=== PATIENT | female | born 1960 ===

== ENCOUNTER 2017-06-16 06:12 | Inpatient (IN) | payer MEDICARE ==
[2017-06-06 09:39] VITALS: BMI 24.0
--- NOTE | 2017-06-16 07:35 | CP.PCM.HP ---
<Cynthia Patterson - Last Filed: 06/16/17 07:48> History of Present Illness - History of Present Illness History of Present Illness: 56 year old female patient with PMHx of CKD, hyperlipidemia, seizure disorder, arthritis was seen and evaluated at bedside prior to left knee revision surgery. Patient reports that she was here for the same surgery last week but it was canceled due to positive urine culture and she was diagnosed with UTI. Patient reports that she has been taking the antibiotics as prescribed and has been taking cranberry juice everyday since then. Patient denies of having any urinary frequency or urgency. Patient states that she has a history of chronic pain in her left knee for about 4 years now. Patient reports that she tried all the conservative methods for the pain but it was not resolved which led her decision to have the original knee replacement surgery in January 2016. Patient states that since then, her pain has not improved and is still having problem with knee ROM and has been having constant pain. Patient reports that she has been NPO since yesterday. Reports that she has seizure like movements coming out of anesthesia each time after surgery. Patient reports that she is on Keppra but is not compliant with the medication. Patient reports that she took Keppra this morning. Patient denies of having any recent F/N/V/C/SOB/CP/ headache/diarrhea/constipation. Denies of having any other complains at this time. PMHx: CKD, Hyperlipidemia, Seizure disorder, Arthritis PSHx: Left TKR (Jan 2016), Tubal ligation Allergies: N.K.D.A Medications: Keppra, Lipitor, Sodium bicarbonate, multivitamins and iron SHx: Denies of smoking, EtOH use or illicit drug usage FHx: CKD Present on Admission - Present on Admission Any Indicators Present on Admission: Yes Review of Systems - Constitutional Constitutional: As Per HPI - EENT Eyes: As Per HPI Nose/Mouth/Throat: As Per HPI - Breasts Breasts: As Per HPI - Cardiovascular Cardiovascular: As Per HPI - Respiratory Respiratory: As Per HPI - Gastrointestinal Gastrointestinal: As Per HPI - Genitourinary Genitourinary: As Per HPI. absent: Urinary Urgency, Freq UTI - Musculoskeletal Musculoskeletal: As Per HPI - Integumentary Integumentary: As Per HPI - Neurological Neurological: As Per HPI - Psychiatric Psychiatric: As Per HPI - Endocrine Endocrine: As Per HPI - Hematologic/Lymphatic Hematologic: As Per HPI Past Patient History - Past Medical History & Family History Past Medical History?: No - Past Social History Smoking Status: Never Smoked - CARDIAC Hx Cardiac Disorders: Yes Hx Hypercholesterolemia: Yes - PULMONARY Hx Respiratory Disorders: No - NEUROLOGICAL Hx Neurological Disorder: Yes Hx Seizures: Yes - HEENT Hx HEENT Problems: No - RENAL Hx Chronic Kidney Disease: No - ENDOCRINE/METABOLIC Hx Endocrine Disorders: No - HEMATOLOGICAL/ONCOLOGICAL Hx Blood Disorders: No - INTEGUMENTARY Hx Dermatological Problems: No - MUSCULOSKELETAL/RHEUMATOLOGICAL Hx Musculoskeletal Disorders: Yes Hx Arthritis: Yes Hx Back Pain: Yes - GASTROINTESTINAL Hx Gastrointestinal Disorders: No - GENITOURINARY/GYNECOLOGICAL Hx Genitourinary Disorders: No - PSYCHIATRIC Hx Psychophysiologic Disorder: No - SURGICAL HISTORY Hx Surgeries: Yes Hx Orthopedic Surgery: Yes (left total knee) - ANESTHESIA Hx Anesthesia: Yes Hx Anesthesia Reactions: No Hx Malignant Hyperthermia: No Meds Allergies/Adverse Reactions: Allergies Allergy/AdvReac Type Severity Reaction Status Date / Time No Known Allergies Allergy Verified 06/11/17 08:29 Physical Exam - Constitutional Appears: Well, Non-toxic, No Acute Distress - Head Exam Head Exam: ATRAUMATIC - Eye Exam Eye Exam: Normal appearance - ENT Exam ENT Exam: Normal Exam - Neck Exam Neck exam: Positive for: Full Rom, Normal Inspection - Respiratory Exam Respiratory Exam: Clear to Auscultation Bilateral, NORMAL BREATHING PATTERN. absent: Rales, Rhonchi, Wheezes - Cardiovascular Exam Cardiovascular Exam: REGULAR RHYTHM, +S1, +S2. absent: Bradycardia, Tachycardia - GI/Abdominal Exam GI & Abdominal Exam: Normal Bowel Sounds, Soft. absent: Firm, Rigid - Rectal Exam Rectal Exam: Deferred - Extremities Exam Extremities exam: Positive for: joint swelling, normal capillary refill, tenderness, pedal pulses present. Negative for: calf tenderness, full ROM, pedal edema - Back Exam Back exam: FULL ROM, NORMAL INSPECTION - Neurological Exam Neurological exam: Alert, Oriented x3 - Psychiatric Exam Psychiatric exam: Normal Affect, Normal Mood - Skin Skin Exam: Intact, Normal Color, Warm Additional comments: Surgical scar present from previous surgery on the left knee Results - Labs Labs: Reviewed Labs Assessment & Plan - Assessment and Plan (Free Text) Assessment: 56 year old female patient with PMHx of CKD, hyperlipidemia, seizure disorder, arthritis was evaluated prior to revision left knee surgery. Plan: 1). Knee revisional surgery, Arthritis - Patient to OR today for surgery 2). UTI - Negative UA - Received ceftriaxone on her last visit in [facility] - Taking PO ceftin 3). CKD - Elevated creatinine: 2.69 - Elevated BUN: 35 - Sodium Bicarbonate 4). Seizure disorder - Patient is non-compliant with her home medication - Continue Keppra 5). Hyperlipidemia - Continue home med - Lipitor - Date & Time Date: 06/16/17 Time: 07:45 <Ayana Pinzon - Last Filed: 06/16/17 08:09> Results - Labs Labs: Laboratory Results - last 24 hr 06/16/17 07:27 Urine Color Yellow Urine Clarity Cloudy Urine pH 7.0 Ur Specific [place] 1.009 Urine Protein 30 Urine Glucose (UA) Neg Urine Ketones Negative Urine Blood Negative Urine Nitrate Negative Urine Bilirubin Negative Urine Urobilinogen 0.2-1.0 Ur Leukocyte Esterase Large Urine RBC (Auto) 3 Urine Microscopic WBC 149 H Ur Squamous Epith Cells 5 Urine Bacteria Occ H Urine Yeast (Budding) Rare H Decision To Admit - Pt Status Changed To: Hospital Disposition Of: Inpatient - Admit Certification Admit to Inpatient:: After my assessment, the patient will require hospitalization for at least two midnights. This is because of the severity of symptoms shown, intensity of services needed, and/or the medical risk in this patient being treated as an outpatient. - . Bed Request Type: Med/Surg Admitting Physician: Ayana Pinzon Attending/Attestation - Attestation I have personally seen and examined this patient.: Yes I have fully participated in the care of the patient.: Yes I have reviewed all pertinent clinical information: Yes Notes (Text): UTI treated with IV Ceftriaxone and PO Ceftin as rec by Dr Pate Urine c/s : No growth however rpt UA show pyuria. Pt present asymptomatic - denies dysuria, no frequency
[2017-06-16 07:49] LABS: SQUAMOUS EPITHIAL 5 /hpf (0-5); URINE BILIRUBIN NEGATIVE (NEGATIVE); URINE BLOOD NEGATIVE (NEGATIVE); URINE CLARITY CLOUDY (Clear); URINE COLOR YELLOW (YELLOW); URINE GLUCOSE (UA) NEG (Normal); URINE LEUKOCYTE ESTERASE LARGE Leu/uL (Negative); URINE NITRATE NEGATIVE (NEGATIVE); URINE PROTEIN 30 mg/dL (NEGATIVE); URINE UROBILINOGEN 0.2-1.0 mg/dL (0.2-1.0)
[2017-06-16 07:54] LABS: URINE BACTERIA OCC (<OCC)
[2017-06-16] MEDS ORDERED: Meropenem 500 MG in Sodium Chloride 0.9% 100 ML IVPB STA (08:18)
[2017-06-16 09:47] LABS: URINE BACTERIA OCC (<OCC); URINE BILIRUBIN NEGATIVE (NEGATIVE); URINE BLOOD NEGATIVE (NEGATIVE); URINE CLARITY SLIGHTY-CLOUDY (Clear); URINE COLOR STRAW (YELLOW); URINE GLUCOSE (UA) NEG (Normal); URINE LEUKOCYTE ESTERASE LARGE Leu/uL (Negative); URINE NITRATE NEGATIVE (NEGATIVE); URINE PROTEIN NEGATIVE (NEGATIVE); URINE UROBILINOGEN 0.2-1.0 mg/dL (0.2-1.0)
--- NOTE | 2017-06-16 14:30 | CP.PCM.PN ---
Subjective - Date & Time of Evaluation Date of Evaluation: 06/16/17 Time of Evaluation: 14:22 - Subjective Subjective: I D INITIAL CONSULT NOTE DISCUSSED c WILL SEE TOMORROW PATIENT c STERILE PYURIA JIMENA ROACH REVIEWED c PATIENT'S APPLICATION SUPPORT TECHNICIAN THAT PATIENT HAS MEDULLARY SPONGE KIDNEY AND THUS HAS PERSISTENT BACTERIA IN URINE LAST WEEK'S CULTURE WAS NEGATIVE FOR COVERAGE HAVE ORDERED MEROPENEM 500MG [id number] Objective - Vital Signs/Intake and Output Vital Signs (last 24 hours): Temp Pulse Resp BP Pulse Ox 97.9 F 57 L 18 122/70 100 06/16/17 08:20 06/16/17 08:38 06/16/17 08:20 06/16/17 08:20 06/16/17 08:20 - Medications Medications: Current Medications Meropenem 500 mg/ Sodium (Chloride) 100 mls @ 100 mls/hr IVPB Q12 [facility] PRN Reason: Protocol
[2017-06-16] MEDS: Lactobacillus Acidophilus 500 MU Cap PO SCH (17:23)
[2017-06-16 19:00] LABS: BASO % 0.2 % (0.0-2.0); EOS # 0.2 K/uL (0.0-0.7); EOS % 1.9 % (0.0-4.0); HEMOGLOBIN 10.7 g/dL (12.0-16.0); LYMPH # 1.8 K/uL (1.0-4.3); LYMPH % 17.3 % (20.0-40.0); MEAN CELL VOLUME 80.5 fl (81.0-99.0); MEAN CORPUSCULAR HGB CONC 34.8 g/dL (33.0-37.0); MEAN PLATELET VOLUME 8.6 fl (7.2-11.7); MONO # 0.6 K/uL (0.0-0.8); NEUT # 7.6 K/uL (1.8-7.0); NEUT % 74.6 % (50.0-75.0); NRBC % 0.1 % (0.0-0.0); RBC 3.82 Mil/uL (3.80-5.20); RED CELL DISTRIBUTION WIDTH 17.7 % (11.5-14.5); WHITE BLOOD COUNT 10.2 K/uL (4.8-10.8)
[2017-06-16 19:09] LABS: ALB/GLOB RATIO 1.4 (1.0-2.1); ALBUMIN 4.4 g/dL (3.5-5.0); CALCIUM 9.2 mg/dL (8.4-10.2)
[2017-06-16 19:16] LABS: INR 1.1 (0.9-1.2); PARTIAL THROMBOPLASTIN TIME 38.6 Seconds (25.6-37.1); PROTHROMBIN TIME 11.9 Seconds (9.8-13.1)
[2017-06-16] MEDS: Meropenem 500 MG in Sodium Chloride 0.9% 100 ML IVPB SCH (20:40)
--- NOTE | 2017-06-17 08:11 | CP.PCM.PN ---
<LeonardoDustinvinay - Last Filed: 06/17/17 11:13> Subjective - Date & Time of Evaluation Date of Evaluation: 06/17/17 Time of Evaluation: 08:08 - Subjective Subjective: 56 year old female patient with PMHx of CKD, hyperlipidemia, seizure disorder, arthritis was seen and evaluated at bedside for UTI. Patient had a scheduled surgery yesterday which was canceled due to patient's reoccurring UTI. Patient is AAOx3 and is in NAD. Patient denies of having any acute overnight events. Patient admits to having increased urinary frequency with mild burning. Patient denies of any other complains at this time. Objective - Vital Signs/Intake and Output Vital Signs (last 24 hours): Temp Pulse Resp BP Pulse Ox 97.8 F 57 L 18 102/61 98 06/16/17 23:47 06/16/17 23:47 06/16/17 23:47 06/16/17 23:47 06/16/17 23:47 - Medications Medications: Current Medications Atorvastatin Calcium (Lipitor) 10 mg PO DAILY [facility] Cholecalciferol (Vitamin D) 1,000 intlu PO DAILY [facility] Enoxaparin Sodium (Lovenox) 30 mg SC DAILY [facility] PRN Reason: Protocol Meropenem 500 mg/ Sodium (Chloride) 100 mls @ 100 mls/hr IVPB Q12 [facility] PRN Reason: Protocol Last Admin: 06/16/17 20:40 Dose: 100 mls/hr Lactobacillus Acidophilus (Bacid Acidophilus) 1 cap PO BID [facility] Last Admin: 06/16/17 17:23 Dose: 1 cap Levetiracetam (Keppra) 500 mg PO BID [facility] Last Admin: 06/16/17 17:23 Dose: 500 mg Sodium Bicarbonate (Sodium Bicarbonate Tab) 650 mg PO BID [facility] Last Admin: 06/16/17 17:24 Dose: 650 mg - Labs Labs: 06/16/17 18:49 06/16/17 18:49 PT 11.9 Seconds (9.8-13.1) 06/16/17 18:49 INR 1.1 (0.9-1.2) 06/16/17 18:49 APTT 38.6 Seconds (25.6-37.1) H 06/16/17 18:49 - Constitutional Appears: Well, Non-toxic, No Acute Distress - Head Exam Head Exam: ATRAUMATIC - Eye Exam Eye Exam: Normal appearance - ENT Exam ENT Exam: Normal Exam - Neck Exam Neck Exam: Full ROM, Normal Inspection - Respiratory Exam Respiratory Exam: Clear to Ausculation Bilateral, NORMAL BREATHING PATTERN. absent: Rales, Rhonchi, Wheezes - Cardiovascular Exam Cardiovascular Exam: REGULAR RHYTHM, +S1, +S2 - GI/Abdominal Exam GI & Abdominal Exam: Soft, Normal Bowel Sounds - Rectal Exam Rectal Exam: Deferred - Extremities Exam Extremities Exam: Joint Swelling, Normal Capillary Refill, Tenderness - Back Exam Back Exam: Full ROM, NORMAL INSPECTION - Neurological Exam Neurological Exam: Alert, Awake, Oriented x3 - Psychiatric Exam Psychiatric exam: Normal Affect, Normal Mood - Skin Skin Exam: Intact, Normal Color, Warm Assessment and Plan - Assessment and Plan (Free Text) Assessment: 56 year old female patient with PMHx of CKD, hyperlipidemia, seizure disorder, arthritis who is scheduled to go for revision TKR was evaluated for UTI Plan: 1). UTI - Infectious Disease consult - Recommendations appreciated - Meropenem IV q24 - afebrile - no leukocytosis 2). Arthritis - Planned Knee revision surgery - Orthopedic consult - Dr. Seth - Surgery pending - awaiting clean urine culture 3). CKD - Sodium Bicarbonate - Monitor labs 4). Seizure disorder - Patient is non-compliant with her home medication - Continue Keppra 5). Hyperlipidemia - Continue home med - Lipitor 6). DVT PPx - Lovenox 30 mg qd - Ambulating <Arlyn Zambrano - Last Filed: 06/17/17 15:30> Objective - Vital Signs/Intake and Output Vital Signs (last 24 hours): Temp Pulse Resp BP Pulse Ox 97.6 F 58 L 20 112/71 100 06/17/17 08:13 06/17/17 08:13 06/17/17 08:13 06/17/17 08:13 06/17/17 08:13 - Medications Medications: Current Medications Atorvastatin Calcium (Lipitor) 10 mg PO DAILY [facility] Last Admin: 06/17/17 09:02 Dose: 10 mg Cholecalciferol (Vitamin D) 1,000 intlu PO DAILY [facility] Last Admin: 06/17/17 12:39 Dose: 1,000 intlu Enoxaparin Sodium (Lovenox) 30 mg SC DAILY [facility] PRN Reason: Protocol Last Admin: 06/17/17 09:01 Dose: 30 mg Meropenem 500 mg/ Sodium (Chloride) 100 mls @ 100 mls/hr IVPB Q12 [facility] PRN Reason: Protocol Last Admin: 06/17/17 09:49 Dose: 100 mls/hr Lactobacillus Acidophilus (Bacid Acidophilus) 1 cap PO BID [facility] Last Admin: 06/17/17 09:01 Dose: 1 cap Levetiracetam (Keppra) 500 mg PO BID [facility] Last Admin: 06/17/17 09:02 Dose: 500 mg Sodium Bicarbonate (Sodium Bicarbonate Tab) 650 mg PO BID [facility] Last Admin: 06/17/17 09:02 Dose: 650 mg - Labs Labs: 06/16/17 18:49 06/16/17 18:49 PT 11.9 Seconds (9.8-13.1) 06/16/17 18:49 INR 1.1 (0.9-1.2) 06/16/17 18:49 APTT 38.6 Seconds (25.6-37.1) H 06/16/17 18:49 Attending/Attestation - Attestation I have personally seen and examined this patient.: Yes I have fully participated in the care of the patient.: Yes I have reviewed all pertinent clinical information, including history, physical exam and plan: Yes Notes (Text): 06/17/17 15:[address] [facility] [place] [facility] resident dr. cari more. agree with findings and plan as above to note: Merrem q12 not q24
[2017-06-17] MEDS: Lactobacillus Acidophilus 500 MU Cap PO SCH ×2 (09:01→17:20)
[2017-06-17] MEDS: Enoxaparin 30 mg Syringe SC SCH (09:01)
[2017-06-17] MEDS: Meropenem 500 MG in Sodium Chloride 0.9% 100 ML IVPB SCH ×2 (09:49→20:36)
--- NOTE | 2017-06-17 11:32 | PQF GENQUE ---
Dr. Zambrano, Please clarify the stage of the chronic kidney disease: if known Stage 1 Stage 2 (mild) Stage 3 (moderate) Stage 4 (severe) Stage 5 Other (please specify) Clinically unable to determine Unknown H and P: dx. include: CKD - Elevated creatinine: 2.69 - Elevated BUN: 35 - Sodium Bicarbonate Clarification of your documentation is requested to better reflect the severity of illness and intensity of treatment of your patient. Indicators present [] Specify: [] [] Specify: [] [] Specify: [] [] Specify: [] Location in the medical record that reflects the above clinical findings: [] Treatment Provided: [] PHYSICIAN'S RESPONSE STAGE 4 Based on your medical judgment of the clinical indicators outlined above please clarify the following: [] Practitioner response [] If unable to determine, please check the box, sign and date. Present On Admission (POA) Indicator: [X] Present at the time of admission [] Not present at the time of admission [] Clinically Undetermined In responding to this query, please exercise your independent professional judgment. The fact that a question is asked does not imply that any particular answer is desired or expected. Thank you for your clarification on this documentation. If you have any questions please call. * Thank you, Christa Ritchie RN ext. #[phone] MTDD
[2017-06-17] MEDS: Cholecalciferol 1,000 INTLU TAB PO SCH (12:39)
[2017-06-18 06:38] LABS: CALCIUM 9.2 mg/dL (8.4-10.2)
[2017-06-18] MEDS: Cholecalciferol 1,000 INTLU TAB PO SCH (08:38)
[2017-06-18] MEDS: Lactobacillus Acidophilus 500 MU Cap PO SCH ×2 (08:38→17:00)
[2017-06-18] MEDS: Meropenem 500 MG in Sodium Chloride 0.9% 100 ML IVPB SCH ×2 (08:39→20:40)
[2017-06-18] MEDS: Enoxaparin 30 mg Syringe SC SCH (08:42)
--- NOTE | 2017-06-18 11:59 | CP.PCM.PN ---
Subjective - Date & Time of Evaluation Date of Evaluation: 06/18/17 Time of Evaluation: 11:59 - Subjective Subjective: pt doing well no complaints no cp sob calf tenderness no acute events overnight HD stable, tolerating abx well Objective - Vital Signs/Intake and Output Vital Signs (last 24 hours): Temp Pulse Resp BP Pulse Ox 97.7 F 78 20 108/68 99 06/18/17 07:57 06/18/17 07:57 06/18/17 07:57 06/18/17 07:57 06/18/17 07:57 Vitals Reviewed GEN: WDWN, ALERT, COOPERATIVE HEENT: NCAT, PERRL, EOMI HEART: RRR, +S1S2, NO MRG LUNG: CTAB, NO WRR ABD: SOFT, NT, ND, NO HSM, NO MASSES EXT: NORMAL PEDAL PULSES, GOOD CAPILLARY REFILL NEURO: AAOX3, STRENGTH EQUAL BILATERAL UPPER AND LOWER EXTREMITIES SKIN: WARM, DRY PSYCH: NORMAL MOOD, NORMAL AFFECT - Medications Medications: Current Medications Atorvastatin Calcium (Lipitor) 10 mg PO DAILY [facility] Last Admin: 06/18/17 08:38 Dose: 10 mg Cholecalciferol (Vitamin D) 1,000 intlu PO DAILY [facility] Last Admin: 06/18/17 08:38 Dose: 1,000 intlu Enoxaparin Sodium (Lovenox) 30 mg SC DAILY [facility] PRN Reason: Protocol Last Admin: 06/18/17 08:42 Dose: 30 mg Meropenem 500 mg/ Sodium (Chloride) 100 mls @ 100 mls/hr IVPB Q12 [facility] PRN Reason: Protocol Last Admin: 06/18/17 08:39 Dose: 100 mls/hr Lactobacillus Acidophilus (Bacid Acidophilus) 1 cap PO BID [facility] Last Admin: 06/18/17 08:38 Dose: 1 cap Levetiracetam (Keppra) 500 mg PO BID [facility] Last Admin: 06/18/17 08:39 Dose: 500 mg Sodium Bicarbonate (Sodium Bicarbonate Tab) 650 mg PO BID [facility] Last Admin: 06/18/17 08:39 Dose: 650 mg - Labs Labs: 06/16/17 18:49 06/18/17 05:30 PT 11.9 Seconds (9.8-13.1) 06/16/17 18:49 INR 1.1 (0.9-1.2) 06/16/17 18:49 APTT 38.6 Seconds (25.6-37.1) H 06/16/17 18:49 Assessment and Plan - Assessment and Plan (Free Text) Plan: 56 year old female patient with PMHx of CKD, hyperlipidemia, seizure disorder, arthritis who is scheduled to go for revision TKR was evaluated for UTI 1). UTI - Infectious Disease consult - Recommendations appreciated - Meropenem IV q12 - afebrile - no leukocytosis 2). Arthritis - Planned Knee revision surgery - Orthopedic consult - Dr. Seth - Surgery pending - awaiting clean urine culture 3). CKD - Sodium Bicarbonate - Monitor labs 4). Seizure disorder - Patient is non-compliant with her home medication - Continue Keppra 5). Hyperlipidemia - Continue home med - Lipitor 6). DVT PPx - Lovenox 30 mg qd - Ambulating
--- NOTE | 2017-06-18 18:43 | CP.PCM.PN ---
Subjective - Date & Time of Evaluation Date of Evaluation: 06/18/17 Time of Evaluation: 18:25 - Subjective Subjective: I D NOTE PATIENT HAS BEEN EVALUATED MULTIPLE OCCASIONS WILL RECEIVE 1 WEEK MEROPENEM Objective - Vital Signs/Intake and Output Vital Signs (last 24 hours): Temp Pulse Resp BP Pulse Ox 98.2 F 63 18 113/70 99 06/18/17 16:26 06/18/17 16:26 06/18/17 16:26 06/18/17 16:26 06/18/17 16:26 - Medications Medications: Current Medications Atorvastatin Calcium (Lipitor) 10 mg PO DAILY [facility] Last Admin: 06/18/17 08:38 Dose: 10 mg Cholecalciferol (Vitamin D) 1,000 intlu PO DAILY [facility] Last Admin: 06/18/17 08:38 Dose: 1,000 intlu Enoxaparin Sodium (Lovenox) 30 mg SC DAILY [facility] PRN Reason: Protocol Last Admin: 06/18/17 08:42 Dose: 30 mg Meropenem 500 mg/ Sodium (Chloride) 100 mls @ 100 mls/hr IVPB Q12 [facility] PRN Reason: Protocol Last Admin: 06/18/17 08:39 Dose: 100 mls/hr Lactobacillus Acidophilus (Bacid Acidophilus) 1 cap PO BID [facility] Last Admin: 06/18/17 17:00 Dose: 1 cap Levetiracetam (Keppra) 500 mg PO BID [facility] Last Admin: 06/18/17 17:00 Dose: 500 mg Sodium Bicarbonate (Sodium Bicarbonate Tab) 650 mg PO BID [facility] Last Admin: 06/18/17 17:00 Dose: 650 mg - Labs Labs: 06/16/17 18:49 06/18/17 05:30 PT 11.9 Seconds (9.8-13.1) 06/16/17 18:49 INR 1.1 (0.9-1.2) 06/16/17 18:49 APTT 38.6 Seconds (25.6-37.1) H 06/16/17 18:49
[2017-06-19 07:51] VITALS: RESP 18
[2017-06-19] MEDS: Lactobacillus Acidophilus 500 MU Cap PO SCH ×2 (08:40→16:18)
[2017-06-19] MEDS: Enoxaparin 30 mg Syringe SC SCH (08:41)
[2017-06-19] MEDS: Meropenem 500 MG in Sodium Chloride 0.9% 100 ML IVPB SCH ×2 (08:41→20:34)
[2017-06-19] MEDS: Cholecalciferol 1,000 INTLU TAB PO SCH (08:42)
--- NOTE | 2017-06-19 10:41 | CP.PCM.DIS ---
[facility] Last Filed: 06/19/17 12:45> Provider - Provider Date of Admission: 06/16/17 15:33 Attending physician: Ayana Pinzon MD Primary care physician: Cynthia Perez MD Time Spent in preparation of Discharge (in minutes): 20 Diagnosis - Discharge Diagnosis (1) UTI (urinary tract infection) Status: Acute Hospital Course - Lab Results Lab Results: Micro Results 06/16/17 18:49 Blood Blood Culture - Preliminary NO GROWTH AFTER 48 HOURS 06/16/17 18:49 Blood Blood Culture - Preliminary NO GROWTH AFTER 48 HOURS 06/16/17 07:31 Urine,Clean Catch Urine Culture - Final No Growth (<1,000 CFU/ML) Most Recent Lab Values WBC 10.2 K/uL (4.8-10.8) 06/16/17 18:49 RBC 3.82 Mil/uL (3.80-5.20) 06/16/17 18:49 Hgb 10.7 g/dL (12.0-16.0) L 06/16/17 18:49 Hct 30.8 % (34.0-47.0) L 06/16/17 18:49 MCV 80.5 fl (81.0-99.0) L 06/16/17 18:49 MCH 28.0 pg (27.0-31.0) 06/16/17 18:49 MCHC 34.8 g/dL (33.0-37.0) 06/16/17 18:49 RDW 17.7 % (11.5-14.5) H 06/16/17 18:49 Plt Count 224 K/uL (130-400) 06/16/17 18:49 MPV 8.6 fl (7.2-11.7) 06/16/17 18:49 Neut % (Auto) 74.6 % (50.0-75.0) 06/16/17 18:49 Lymph % (Auto) 17.3 % (20.0-40.0) L 06/16/17 18:49 [place] % (Auto) 6.0 % (0.0-10.0) 06/16/17 18:49 Eos % (Auto) 1.9 % (0.0-4.0) 06/16/17 18:49 Baso % (Auto) 0.2 % (0.0-2.0) 06/16/17 18:49 Neut # 7.6 K/uL (1.8-7.0) H 06/16/17 18:49 Lymph # 1.8 K/uL (1.0-4.3) 06/16/17 18:49 [place] # 0.6 K/uL (0.0-0.8) 06/16/17 18:49 Eos # 0.2 K/uL (0.0-0.7) 06/16/17 18:49 Baso # 0.0 K/uL (0.0-0.2) 06/16/17 18:49 PT 11.9 Seconds (9.8-13.1) 06/16/17 18:49 INR 1.1 (0.9-1.2) 06/16/17 18:49 APTT 38.6 Seconds (25.6-37.1) H 06/16/17 18:49 Sodium 144 mmol/l (132-148) 06/18/17 05:30 Potassium 4.0 MMOL/L (3.6-5.0) 06/18/17 05:30 Chloride 111 mmol/L (98-107) H 06/18/17 05:30 Carbon Dioxide 18 mmol/L (22-30) L 06/18/17 05:30 Anion Gap 19 (10-20) 06/18/17 05:30 BUN 39 mg/dl (7-17) H 06/18/17 05:30 Creatinine 2.8 mg/dl (0.7-1.2) H 06/18/17 05:30 Est GFR ( Amer) 21 06/18/17 05:30 Est GFR (Non-Af Amer) 17 06/18/17 05:30 Random Glucose 154 mg/dL (65-105) H 06/18/17 05:30 Calcium 9.2 mg/dL (8.4-10.2) 06/18/17 05:30 Total Bilirubin 0.5 mg/dl (0.2-1.3) 06/16/17 18:49 AST 16 U/L (14-36) 06/16/17 18:49 ALT 29 U/L (9-52) 06/16/17 18:49 Alkaline Phosphatase 74 U/L (38-126) 06/16/17 18:49 Total Protein 7.7 G/DL (6.3-8.2) 06/16/17 18:49 Albumin 4.4 g/dL (3.5-5.0) 06/16/17 18:49 Globulin 3.2 gm/dL (2.2-3.9) 06/16/17 18:49 Albumin/Globulin Ratio 1.4 (1.0-2.1) 06/16/17 18:49 Urine Color Straw (YELLOW) 06/16/17 09:16 Urine Clarity Slighty-cloudy (Clear) 06/16/17 09:16 Urine pH 7.0 (5.0-8.0) 06/16/17 09:16 Ur Specific Howe 1.009 (1.003-1.030) 06/16/17 09:16 Urine Protein Negative mg/dL (NEGATIVE) 06/16/17 09:16 Urine Glucose (UA) Neg mg/dL (Normal) 06/16/17 09:16 Urine Ketones Negative mg/dL (NEGATIVE) 06/16/17 09:16 Urine Blood Negative (NEGATIVE) 06/16/17 09:16 Urine Nitrate Negative (NEGATIVE) 06/16/17 09:16 Urine Bilirubin Negative (NEGATIVE) 06/16/17 09:16 Urine Urobilinogen 0.2-1.0 mg/dL (0.2-1.0) 06/16/17 09:16 Ur Leukocyte Esterase Large Daniela/uL (Negative) 06/16/17 09:16 Urine RBC (Auto) 1 /hpf (0-3) 06/16/17 09:16 Urine Microscopic WBC 72 /hpf (0-5) H 06/16/17 09:16 Ur Squamous Epith Cells 5 /hpf (0-5) 06/16/17 07:27 Urine Bacteria Occ (<OCC) H 06/16/17 09:16 Urine Yeast (Budding) Rare /hpf (NEGATIVE) H 06/16/17 09:16 Blood Type O POSITIVE 06/16/17 07:50 Antibody Screen Negative 06/16/17 07:50 BBK History Checked Patient has bt 06/16/17 07:50 - Hospital Course Hospital Course: 56 year old female patient with PMHx of CKD, hyperlipidemia, seizure disorder, arthritis was admitted to the hospital due to recurrent UTI prior to revision left knee surgery. During the hospital stay, patient was seen by infectious disease. Patient is receiving IV Meropenem and will be on abx for total of 7 days. Patient is scheduled to have the left knee surgery on Friday. Patient will be transferred to TCU to complete the course of IV abx prior to the left knee surgery. 1). UTI - Infectious Disease consult - Recommendations appreciated - Meropenem IV q12 - afebrile - no leukocytosis 2). Arthritis - Planned Knee revision surgery - Orthopedic consult - Dr. Seth - Surgery pending - awaiting clean urine culture 3). CKD - Sodium Bicarbonate - Monitor labs 4). Seizure disorder - Patient is non-compliant with her home medication - Continue Keppra 5). Hyperlipidemia - Continue home med - Lipitor 6). DVT PPx - Lovenox 30 mg qd - Ambulating - Date & Time of H&P Date of H&P: 06/19/17 Time of H&P: 08:50 Discharge Exam - Head Exam Head Exam: ATRAUMATIC - Eye Exam Eye Exam: Normal appearance - ENT Exam ENT Exam: Normal Exam - Neck Exam Neck exam: Full Rom, Normal Inspection - Respiratory Exam Respiratory Exam: Clear to PA & Lateral, NORMAL BREATHING PATTERN, UNREMARKABLE. absent: Rales, Rhonchi, Wheezes - Cardiovascular Exam Cardiovascular Exam: REGULAR RHYTHM, +S1, +S2. absent: Bradycardia, Tachycardia - GI/Abdominal Exam GI & Abdominal Exam: Normal Bowel Sounds, Unremarkable - Rectal Exam Rectal Exam: Deferred - Extremities Exam Extremities exam: full ROM, normal capillary refill, normal inspection, pedal pulses present - Back Exam Back exam: FULL ROM, NORMAL INSPECTION - Neurological Exam Neurological exam: Alert, Normal Gait, Oriented x3 - Psychiatric Exam Psychiatric exam: Normal Affect, Normal Mood - Skin Skin Exam: Intact, Normal Color, Warm Discharge Plan - Discharge Medications Prescriptions: Meropenem [Merrem IV] 500 mg IV Q12 5 Days pds - Follow Up Plan Condition: GOOD Disposition: TRANSF TO SNF Instructions: Urinary Tract Infection in Women (DC), Revision Total Joint Arthroplasty (DC) Additional Instructions: d/c to TCU Referrals: Jerzy Seth III, MD [Staff Provider] - Regan Pate MD [Medical Doctor] - Cynthia Perez MD [Primary Care Provider] - <Ayana Pinzon - Last Filed: 06/19/17 16:23> Provider - Provider Date of Admission: 06/16/17 15:33 Attending physician: Ayana Pinzon MD Primary care physician: Cynthia Perez MD Hospital Course - Lab Results Lab Results: Micro Results 06/16/17 18:49 Blood Blood Culture - Preliminary NO GROWTH AFTER 48 HOURS 06/16/17 18:49 Blood Blood Culture - Preliminary NO GROWTH AFTER 48 HOURS 06/16/17 07:31 Urine,Clean Catch Urine Culture - Final No Growth (<1,000 CFU/ML) Most Recent Lab Values WBC 10.2 K/uL (4.8-10.8) 06/16/17 18:49 RBC 3.82 Mil/uL (3.80-5.20) 06/16/17 18:49 Hgb 10.7 g/dL (12.0-16.0) L 06/16/17 18:49 Hct 30.8 % (34.0-47.0) L 06/16/17 18:49 MCV 80.5 fl (81.0-99.0) L 06/16/17 18:49 MCH 28.0 pg (27.0-31.0) 06/16/17 18:49 MCHC 34.8 g/dL (33.0-37.0) 06/16/17 18:49 RDW 17.7 % (11.5-14.5) H 06/16/17 18:49 Plt Count 224 K/uL (130-400) 06/16/17 18:49 MPV 8.6 fl (7.2-11.7) 18 18:49 Neut % (Auto) 74.6 % (50.0-75.0) 06/16/17 18:49 Lymph % (Auto) 17.3 % (20.0-40.0) L 06/16/17 18:49 [place] % (Auto) 6.0 % (0.0-10.0) 06/16/17 18:49 Eos % (Auto) 1.9 % (0.0-4.0) 06/16/17 18:49 Baso % (Auto) 0.2 % (0.0-2.0) 06/16/17 18:49 Neut # 7.6 K/uL (1.8-7.0) H 06/16/17 18:49 Lymph # 1.8 K/uL (1.0-4.3) 06/16/17 18:49 [place] # 0.6 K/uL (0.0-0.8) 06/16/17 18:49 Eos # 0.2 K/uL (0.0-0.7) 06/16/17 18:49 Baso # 0.0 K/uL (0.0-0.2) 06/16/17 18:49 PT 11.9 Seconds (9.8-13.1) 06/16/17 18:49 INR 1.1 (0.9-1.2) 06/16/17 18:49 APTT 38.6 Seconds (25.6-37.1) H 06/16/17 18:49 Sodium 144 mmol/l (132-148) 06/18/17 05:30 Potassium 4.0 MMOL/L (3.6-5.0) 06/18/17 05:30 Chloride 111 mmol/L (98-107) H 06/18/17 05:30 Carbon Dioxide 18 mmol/L (22-30) L 06/18/17 05:30 Anion Gap 19 (10-20) 06/18/17 05:30 BUN 39 mg/dl (7-17) H 06/18/17 05:30 Creatinine 2.8 mg/dl (0.7-1.2) H 06/18/17 05:30 Est GFR ( Amer) 21 06/18/17 05:30 Est GFR (Non-Af Amer) 17 06/18/17 05:30 Random Glucose 154 mg/dL (65-105) H 06/18/17 05:30 Calcium 9.2 mg/dL (8.4-10.2) 06/18/17 05:30 Total Bilirubin 0.5 mg/dl (0.2-1.3) 06/16/17 18:49 AST 16 U/L (14-36) 06/16/17 18:49 ALT 29 U/L (9-52) 06/16/17 18:49 Alkaline Phosphatase 74 U/L (38-126) 06/16/17 18:49 Total Protein 7.7 G/DL (6.3-8.2) 06/16/17 18:49 Albumin 4.4 g/dL (3.5-5.0) 06/16/17 18:49 Globulin 3.2 gm/dL (2.2-3.9) 06/16/17 18:49 Albumin/Globulin Ratio 1.4 (1.0-2.1) 06/16/17 18:49 Urine Color Straw (YELLOW) 06/16/17 09:16 Urine Clarity Slighty-cloudy (Clear) 06/16/17 09:16 Urine pH 7.0 (5.0-8.0) 06/16/17 09:16 Ur Specific Howe 1.009 (1.003-1.030) 06/16/17 09:16 Urine Protein Negative mg/dL (NEGATIVE) 06/16/17 09:16 Urine Glucose (UA) Neg mg/dL (Normal) 06/16/17 09:16 Urine Ketones Negative mg/dL (NEGATIVE) 06/16/17 09:16 Urine Blood Negative (NEGATIVE) 06/16/17 09:16 Urine Nitrate Negative (NEGATIVE) 06/16/17 09:16 Urine Bilirubin Negative (NEGATIVE) 06/16/17 09:16 Urine Urobilinogen 0.2-1.0 mg/dL (0.2-1.0) 06/16/17 09:16 Ur Leukocyte Esterase Large Daniela/uL (Negative) 06/16/17 09:16 Urine RBC (Auto) 1 /hpf (0-3) 06/16/17 09:16 Urine Microscopic WBC 72 /hpf (0-5) H 06/16/17 09:16 Ur Squamous Epith Cells 5 /hpf (0-5) 06/16/17 07:27 Urine Bacteria Occ (<OCC) H 06/16/17 09:16 Urine Yeast (Budding) Rare /hpf (NEGATIVE) H 06/16/17 09:16 Blood Type O POSITIVE 06/16/17 07:50 Antibody Screen Negative 06/16/17 07:50 BBK History Checked Patient has bt 06/16/17 07:50 Attending/Attestation - Attestation I have personally seen and examined this patient.: Yes I have fully participated in the care of the patient.: Yes I have reviewed all pertinent clinical information, including history, physical exam and plan: Yes Notes (Text): 1). UTI - was started on IV Meropenem since admission as rec by ID - will d/c pt to TCU to complete IV antibiotic treatment 2). Arthritis - Planned Knee revision surgery - Orthopedic consult - Dr. Seth - Surgery pending - awaiting UTI to resolve prior to any surgery 3). CKD stage IV, stable - cont Sodium Bicarbonate - Monitor labs - pt to ff up with her Linux System Engineer as outpt 4). Seizure disorder - Continue Keppra - home med 5). Hyperlipidemia - Continue home med - Lipitor 6). DVT PPx - Lovenox 30 mg qd - Ambulating
[2017-06-19 16:27] VITALS: BP 99/63; PULSE 53; TEMP 97.4; O2SAT 98
== END 2017-06-19 22:40 | DRG 690 ==
LOC: H.OPSURG 06:12 → H.MEDSURG1 15:33
PROVIDERS: ADMIT Internal Medicine; ATTEND Internal Medicine
DX: N39.0 Urinary tract infection, site not specified (principal); N18.4 Chronic kidney disease, stage 4 (severe); Q61.5 Medullary cystic kidney; E78.5 Hyperlipidemia, unspecified; G40.909 Epilepsy, unspecified, not intractable, without status epilepticus; Z96.652 Presence of left artificial knee joint; Z91.14 Patient's other noncompliance with medication regimen; M19.90 Unspecified osteoarthritis, unspecified site; E78.00 Pure hypercholesterolemia, unspecified; G89.29 Other chronic pain

== ENCOUNTER 2017-06-19 14:48 | Inpatient (IN) | payer OTHER ==
[2017-06-19 23:01] VITALS: BMI 25.8
[2017-06-20 06:51] LABS: BASO % 0.3 % (0.0-2.0); EOS # 0.2 K/uL (0.0-0.7); EOS % 1.8 % (0.0-4.0); HEMOGLOBIN 12.1 g/dL (12.0-16.0); LYMPH # 3.4 K/uL (1.0-4.3); LYMPH % 25.9 % (20.0-40.0); MEAN CELL VOLUME 79.6 fl (81.0-99.0); MEAN CORPUSCULAR HEMOGLOBIN 28.2 pg (27.0-31.0); MEAN CORPUSCULAR HGB CONC 35.4 g/dL (33.0-37.0); MEAN PLATELET VOLUME 8.4 fl (7.2-11.7); MONO # 0.9 K/uL (0.0-0.8); MONO % 6.5 % (0.0-10.0); NEUT # 8.7 K/uL (1.8-7.0); NEUT % 65.5 % (50.0-75.0); RBC 4.31 Mil/uL (3.80-5.20); WHITE BLOOD COUNT 13.3 K/uL (4.8-10.8)
[2017-06-20 07:06] LABS: CALCIUM 9.6 mg/dL (8.4-10.2)
[2017-06-20 07:17] LABS: PARTIAL THROMBOPLASTIN TIME 43.1 Seconds (25.6-37.1); PROTHROMBIN TIME 11.7 Seconds (9.8-13.1)
[2017-06-20 08:07] VITALS: RESP 20
--- NOTE | 2017-06-20 08:26 | CP.PCM.HP ---
History of Present Illness - History of Present Illness History of Present Illness: Chief complaint : transferred to TCU for completion of IV antibiotics for UTI HPI: 56 year old female patient with PMHx of CKD ( Medullary Sponge Kidney) , hyperlipidemia, seizure disorder, arthritis was admitted to Med Surg for UTI. She was scheduled for Revision TKR and was found to have UTI. Her Ortho surgery was cancelled and will be rescheduled once UTI resolves. Patient had no fever , has sl leukocytosis on CBC . Denies dysuria, no abd pain nor flank pain. Infectious Disease Specialist was consulted and she was started on IV Meropenem. The patient was transferred to TCU for completion of IV antibiotics. Present on Admission - Present on Admission Any Indicators Present on Admission: No Review of Systems - Review of Systems All systems: reviewed and no additional remarkable complaints except - Constitutional Constitutional: absent: Chills, Fever - EENT Eyes: absent: Change in Vision Nose/Mouth/Throat: absent: Nasal Congestion - Cardiovascular Cardiovascular: absent: Chest Pain, Orthopnea, Palpitations - Respiratory Respiratory: absent: Dyspnea, Hemoptysis - Gastrointestinal Gastrointestinal: absent: Abdominal Pain, Nausea, Vomiting - Genitourinary Genitourinary: Pyuria. absent: Difficulty Urinating, Dysuria, Hematuria - Musculoskeletal Musculoskeletal: Abnormal Gait, Arthralgias - Integumentary Integumentary: absent: Rash - Neurological Neurological: absent: Confusion, Focal Weakness - Psychiatric Psychiatric: absent: Hallucinations - Endocrine Endocrine: absent: Polydipsia, Polyphagia, Polyuria - Hematologic/Lymphatic Hematologic: absent: Easy Bleeding, Easy Bruising Past Patient History - Infectious Disease Hx of Infectious Diseases: None - Tetanus Immunizations Tetanus Immunization: Unknown - Past Medical History & Family History Past Medical History?: Yes - Past Social History Smoking Status: Never Smoked Chewing Tobacco Use: No Cigar Use: No Alcohol: None Drugs: Denies Home Situation {Lives}: With Family - CARDIAC Hx Cardiac Disorders: Yes Hx Hypercholesterolemia: Yes - PULMONARY Hx Respiratory Disorders: No - NEUROLOGICAL Hx Neurological Disorder: Yes Hx Seizures: Yes - HEENT Hx HEENT Problems: No - RENAL Hx Chronic Kidney Disease: Yes Other/Comment: 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 - ENDOCRINE/METABOLIC Hx Endocrine Disorders: No - HEMATOLOGICAL/ONCOLOGICAL Hx AIDS: No Hx Human Immunodeficiency Virus (HIV): No - INTEGUMENTARY Hx Dermatological Problems: No - MUSCULOSKELETAL/RHEUMATOLOGICAL Hx Arthritis: Yes Hx Falls: No - GASTROINTESTINAL Hx Gastrointestinal Disorders: No - GENITOURINARY/GYNECOLOGICAL Hx Genitourinary Disorders: No Hx Urinary Tract Infection: Yes (current) - PSYCHIATRIC Hx Substance Use: No - SURGICAL HISTORY Hx Surgeries: Yes Hx Orthopedic Surgery: Yes (left total knee) - ANESTHESIA Hx Anesthesia: Yes Hx Anesthesia Reactions: No Hx Malignant Hyperthermia: No Meds Allergies/Adverse Reactions: Allergies Allergy/AdvReac Type Severity Reaction Status Date / Time No Known Allergies Allergy Verified 06/11/17 08:29 Physical Exam - Constitutional Appears: No Acute Distress - Head Exam Head Exam: NORMAL INSPECTION, NORMOCEPHALIC - Eye Exam Eye Exam: EOMI, Normal appearance, PERRL Pupil Exam: NORMAL ACCOMODATION - ENT Exam ENT Exam: Mucous Membranes Moist, Normal External Ear Exam - Neck Exam Neck exam: Positive for: Full Rom. Negative for: Meningismus - Respiratory Exam Respiratory Exam: absent: Respiratory Distress, NORMAL BREATHING PATTERN - Cardiovascular Exam Cardiovascular Exam: REGULAR RHYTHM, +S1, +S2 - GI/Abdominal Exam GI & Abdominal Exam: Normal Bowel Sounds, Soft. absent: Tenderness - Extremities Exam Extremities exam: Positive for: normal capillary refill. Negative for: calf tenderness, pedal pulses present Additional comments: pain on ROM of left knee - Back Exam Back exam: absent: CVA tenderness (L), CVA tenderness (R) - Neurological Exam Neurological exam: Alert, CN II-XII Intact, Oriented x3, Reflexes Normal - Psychiatric Exam Psychiatric exam: Normal Mood - Skin Skin Exam: Dry, Normal Color, Warm Results - Vital Signs Recent Vital Signs: Last Vital Signs Temp 97.9 F 06/20/17 08:07 Pulse 66 06/20/17 08:07 Resp 20 06/20/17 08:07 BP 111/62 06/20/17 08:07 Pulse Ox 97 06/20/17 08:07 - Labs Result Diagrams: 06/20/17 06:30 06/20/17 06:30 Labs: Laboratory Results - last 24 hr 06/20/17 06/20/17 06/20/17 06:30 06:30 06:30 WBC 13.3 H RBC 4.31 Hgb 12.1 Hct 34.3 MCV 79.6 L MCH 28.2 MCHC 35.4 RDW 18.0 H Plt Count 305 MPV 8.4 Neut % (Auto) 65.5 Lymph % (Auto) 25.9 [place] % (Auto) 6.5 Eos % (Auto) 1.8 Baso % (Auto) 0.3 Neut # 8.7 H Lymph # 3.4 [place] # 0.9 H Eos # 0.2 Baso # 0.0 PT 11.7 INR 1.0 APTT 43.1 H Sodium 145 Potassium 4.0 Chloride 111 H Carbon Dioxide 18 L Anion Gap 20 BUN 38 H Creatinine 2.8 H Est GFR ( Amer) 21 Est GFR (Non-Af Amer) 17 Random Glucose 151 H Calcium 9.6 Assessment & Plan - Assessment and Plan (Free Text) Assessment: 56 year old female patient with PMHx of CKD, hyperlipidemia, seizure disorder, arthritis was admitted to the hospital for UTI. Pt was scheduled for Revision TKR of the left knee when she was found to have UTI. Her Ortho surgery was cancelled and will be rescheduled omce her UTI resolves. Sge was seen infectious disease who rec IV Meropenem and will be on abx for total of 7 days. Patient is scheduled to have the left knee surgery on Friday. Patient was transferred to TCU to complete the course of IV abx prior to the left knee surgery. 1). UTI - Infectious Disease consult - Meropenem IV q12 - afebrile - no leukocytosis -Urine c/s : multiple organisms 2). Arthritis - Planned Knee revision surgery - Orthopedic consult - Dr. Seth -Plan for Surgery Friday - d/c Lovenox prior to surgery - 3). CKD Stage IV - cont Sodium Bicarbonate - Monitor labs - Had seen Dr Yap her Sash Repairer prior admission and was optimized for surgery- I spoke with Dr Yap - she rec to cont TID Sodium biCarb, may increase to QID if CO2 goes down below 18, may give Epogen and Venofer for anemia ( phone number # [phone]) - renal function has been stable for the past 3 years 4). Seizure disorder - Continue Keppra 5). Hyperlipidemia - Continue home med - Lipitor 6). DVT PPx - Lovenox 30 mg qd- d/loco am - Ambulating Decision To Admit - Pt Status Changed To: Hospital Disposition Of: Inpatient - Admit Certification Admit to Inpatient:: After my assessment, the patient will require hospitalization for at least two midnights. This is because of the severity of symptoms shown, intensity of services needed, and/or the medical risk in this patient being treated as an outpatient. - . Bed Request Type: Transitional Care Unit Admitting Physician: Ayana Pinzon
[2017-06-20] MEDS: Lactobacillus Acidophilus 500 MU Cap PO SCH ×2 (08:56→17:12)
[2017-06-20] MEDS: Cholecalciferol 1,000 INTLU TAB PO SCH (08:57)
[2017-06-20] MEDS: Enoxaparin 30 mg Syringe SC SCH (08:59)
[2017-06-20] MEDS ORDERED: Patient's Own Med (Meropenem [Merrem Iv] 500 MG) IV SCH (09:00)
[2017-06-21] MEDS: Cholecalciferol 1,000 INTLU TAB PO SCH (09:05)
[2017-06-21] MEDS: Lactobacillus Acidophilus 500 MU Cap PO SCH ×2 (09:05→17:09)
[2017-06-21] MEDS: Enoxaparin 30 mg Syringe SC SCH (09:05)
[2017-06-22 06:59] LABS: HEMOGLOBIN 10.5 g/dL (12.0-16.0); MEAN CELL VOLUME 79.9 fl (81.0-99.0); MEAN CORPUSCULAR HGB CONC 35.1 g/dL (33.0-37.0); RBC 3.76 Mil/uL (3.80-5.20); WHITE BLOOD COUNT 9.2 K/uL (4.8-10.8)
[2017-06-22 07:08] LABS: INR 1.1 (0.9-1.2); PARTIAL THROMBOPLASTIN TIME 42.2 Seconds (25.6-37.1); PROTHROMBIN TIME 11.8 Seconds (9.8-13.1)
[2017-06-22 07:20] LABS: CALCIUM 9.3 mg/dL (8.4-10.2)
[2017-06-22] MEDS: Cholecalciferol 1,000 INTLU TAB PO SCH (08:39)
[2017-06-22] MEDS: Enoxaparin 30 mg Syringe SC SCH (08:39)
[2017-06-22] MEDS: Lactobacillus Acidophilus 500 MU Cap PO SCH ×2 (08:39→17:06)
--- NOTE | 2017-06-22 11:36 | CP.PCM.PN ---
Subjective - Date & Time of Evaluation Date of Evaluation: 06/22/17 Time of Evaluation: 11:00 - Subjective Subjective: S- PT WITH SEVERE PAIN, RESROICTED rom S/P L TKR PT WITH ARTHROFIBROSIS WELL Objective - Vital Signs/Intake and Output Vital Signs (last 24 hours): Temp Pulse Resp BP Pulse Ox 97.3 F L 60 20 110/57 L 98 06/22/17 09:12 06/22/17 09:12 06/22/17 09:12 06/22/17 09:12 06/22/17 09:12 - Medications Medications: Current Medications Atorvastatin Calcium (Lipitor) 10 mg PO DAILY [facility] Last Admin: 06/22/17 08:39 Dose: 10 mg Cholecalciferol (Vitamin D) 1,000 intlu PO DAILY [facility] Last Admin: 06/22/17 08:39 Dose: 1,000 intlu Meropenem 500 mg/ Sodium (Chloride) 100 mls @ 100 mls/hr IVPB Q12 [facility] Last Admin: 06/22/17 08:39 Dose: 100 mls/hr Lactobacillus Acidophilus (Bacid Acidophilus) 1 cap PO BID [facility] Last Admin: 06/22/17 08:39 Dose: 1 cap Levetiracetam (Keppra) 500 mg PO BID [facility] Last Admin: 06/22/17 08:39 Dose: 500 mg Sodium Bicarbonate (Sodium Bicarbonate Tab) 650 mg PO QID [facility] Last Admin: 06/22/17 09:05 Dose: 650 mg - Labs Labs: 06/22/17 05:25 06/22/17 05:25 PT 11.8 Seconds (9.8-13.1) 06/22/17 05:25 INR 1.1 (0.9-1.2) 06/22/17 05:25 APTT 42.2 Seconds (25.6-37.1) H 06/22/17 05:25 - Additional Findings Additional findings: Objective systemic- wnl Musculoskekltal stance- erect - pelvis level pt with antalgic gait L severe PT UNABLE TO ATTAIN FULL EXTENSIONrom- BY AT LEAST 16 DEGREES rom- -16 DEGREES TO 44 DEGREES Assessment and Plan - Assessment and Plan (Free Text) Assessment: a- NO EVIDENCE FOR rsd arthrofibrosis/painful stiff TKR 'P_ for revision TKR L - pros cons risks and benfits discussed at legnth possibility of mercvhanical failure/infection/ thromboembolic disease, possibility of secondary or tertiary surgery discussed NO PROMISES GUARANTEES
--- NOTE | 2017-06-22 14:19 | RAD ---
PROCEDURE: Left Knee Radiographs. HISTORY: Pain. COMPARISON: None. FINDINGS: BONES: Left total knee arthroplasty. Hardware appears intact without evidence of loosening or infection. No evidence of acute displaced fracture nor dislocation. JOINTS: As above JOINT EFFUSION: Small suprapatellar joint effusion OTHER FINDINGS: None. IMPRESSION: Left total knee arthroplasty without evidence of hardware failure. Small suprapatellar joint effusion.
[2017-06-22 21:59] VITALS: BP 142/73; PULSE 67; TEMP 98.4; O2SAT 97
[2017-06-23 05:20] LABS: HEMOGLOBIN 10.8 g/dL (12.0-16.0); MEAN CELL VOLUME 81.3 fl (81.0-99.0); MEAN CORPUSCULAR HEMOGLOBIN 28.1 pg (27.0-31.0); MEAN CORPUSCULAR HGB CONC 34.6 g/dL (33.0-37.0); RBC 3.83 Mil/uL (3.80-5.20); RED CELL DISTRIBUTION WIDTH 17.7 % (11.5-14.5); WHITE BLOOD COUNT 10.6 K/uL (4.8-10.8)
[2017-06-23 05:27] LABS: CALCIUM 9.1 mg/dL (8.4-10.2)
[2017-06-23 06:38] LABS: INR 1.1 (0.9-1.2); PARTIAL THROMBOPLASTIN TIME 44.2 Seconds (25.6-37.1); PROTHROMBIN TIME 11.8 Seconds (9.8-13.1)
--- NOTE | 2017-06-23 09:57 | CP.PCM.DIS ---
Provider - Provider Date of Admission: 06/19/17 23:01 Attending physician: Luis Alvarez Primary care physician: Cynthia Perez MD Consults: Dr Seth Time Spent in preparation of Discharge (in minutes): 25 Diagnosis - Discharge Diagnosis (1) UTI (urinary tract infection) Status: Acute Comment: completed course of IV Meropenem in TCU (2) Arthritis of left knee Status: Chronic Comment: for revision of left knee surgery (3) CKD (chronic kidney disease) Status: Chronic Comment: stable (4) Seizure Status: Acute Comment: continue [facility] - Lab Results Lab Results: Most Recent Lab Values WBC 10.6 K/uL (4.8-10.8) 06/23/17 05:11 RBC 3.83 Mil/uL (3.80-5.20) 06/23/17 05:11 Hgb 10.8 g/dL (12.0-16.0) L 06/23/17 05:11 Hct 31.1 % (34.0-47.0) L 06/23/17 05:11 MCV 81.3 fl (81.0-99.0) 06/23/17 05:11 MCH 28.1 pg (27.0-31.0) 06/23/17 05:11 MCHC 34.6 g/dL (33.0-37.0) 06/23/17 05:11 RDW 17.7 % (11.5-14.5) H 06/23/17 05:11 Plt Count 211 K/uL (130-400) 06/23/17 05:11 MPV 8.4 fl (7.2-11.7) 06/20/17 06:30 Neut % (Auto) 65.5 % (50.0-75.0) 06/20/17 06:30 Lymph % (Auto) 25.9 % (20.0-40.0) 06/20/17 06:30 [place] % (Auto) 6.5 % (0.0-10.0) 06/20/17 06:30 Eos % (Auto) 1.8 % (0.0-4.0) 06/20/17 06:30 Baso % (Auto) 0.3 % (0.0-2.0) 06/20/17 06:30 Neut # 8.7 K/uL (1.8-7.0) H 06/20/17 06:30 Lymph # 3.4 K/uL (1.0-4.3) 06/20/17 06:30 [place] # 0.9 K/uL (0.0-0.8) H 06/20/17 06:30 Eos # 0.2 K/uL (0.0-0.7) 06/20/17 06:30 Baso # 0.0 K/uL (0.0-0.2) 06/20/17 06:30 PT 11.8 Seconds (9.8-13.1) 06/23/17 05:11 INR 1.1 (0.9-1.2) 06/23/17 05:11 APTT 44.2 Seconds (25.6-37.1) H 06/23/17 05:11 Sodium 145 mmol/l (132-148) 06/23/17 05:11 Potassium 3.7 MMOL/L (3.6-5.0) 06/23/17 05:11 Chloride 114 mmol/L (98-107) H 06/23/17 05:11 Carbon Dioxide 15 mmol/L (22-30) L 06/23/17 05:11 Anion Gap 20 (10-20) 06/23/17 05:11 BUN 42 mg/dl (7-17) H 06/23/17 05:11 Creatinine 2.6 mg/dl (0.7-1.2) H 06/23/17 05:11 Est GFR ( Amer) 23 06/23/17 05:11 Est GFR (Non-Af Amer) 19 06/23/17 05:11 Random Glucose 125 mg/dL (65-105) H 06/23/17 05:11 Calcium 9.1 mg/dL (8.4-10.2) 06/23/17 05:11 Blood Type O POSITIVE 06/21/17 05:25 Antibody Screen Negative 06/21/17 05:25 Crossmatch See Detail 06/21/17 05:25 BBK History Checked Patient has bt 06/21/17 05:25 - Hospital Course Hospital Course: 56 yo female with history of CKD, HLD, Seizure and Arthritis was admitted for revision of left knee surgery but was found to have recurrent UTI. She was put on IV Meropenem for 7 days and surgery was held. She was transferred to TCU for completion of IV antibiotics. She is scheduled for surgery today after completion of her IV antibiotics. Discharge Exam - Head Exam Head Exam: NORMAL INSPECTION, NORMOCEPHALIC - Eye Exam Eye Exam: absent: Scleral icterus - ENT Exam ENT Exam: Mucous Membranes Moist - Respiratory Exam Respiratory Exam: absent: Rhonchi, Wheezes, Respiratory Distress - Cardiovascular Exam Cardiovascular Exam: REGULAR RHYTHM, +S1, +S2 - GI/Abdominal Exam GI & Abdominal Exam: Soft. absent: Tenderness - Rectal Exam Rectal Exam: Deferred - Neurological Exam Neurological exam: Alert, Oriented x3 - Psychiatric Exam Psychiatric exam: Normal Affect - Skin Skin Exam: Dry, Intact Discharge Plan - Follow Up Plan Condition: STABLE Disposition: Trans to Other Acute Care Hosp Referrals: Cynthia Perez MD [Primary Care Provider] -
== END 2017-06-23 06:45 | disposition short-term general hospital (02) | DRG 690 ==
LOC: H.TCU 23:01
PROVIDERS: ADMIT Internal Medicine; ATTEND Internal Medicine
PROC: 3E03329 Introduction of Other Anti-infective into Peripheral Vein, Percutaneous Approach (ICD-10-PCS; principal; 2017-06-19)
PROC: 30233N1 Transfusion of Nonautologous Red Blood Cells into Peripheral Vein, Percutaneous Approach (ICD-10-PCS; 2017-06-23)
DX: N39.0 Urinary tract infection, site not specified (principal); N18.4 Chronic kidney disease, stage 4 (severe); Q61.5 Medullary cystic kidney; Z87.440 Personal history of urinary (tract) infections; E78.00 Pure hypercholesterolemia, unspecified; E78.5 Hyperlipidemia, unspecified; G40.909 Epilepsy, unspecified, not intractable, without status epilepticus; M17.12 Unilateral primary osteoarthritis, left knee

== ENCOUNTER 2017-06-23 06:42 | Inpatient (IN) | payer MEDICARE ==
[2017-06-23 06:54] VITALS: BMI 25.4
[2017-06-23] MEDS ORDERED: Thrombin Topical 5,000 Int Units Spray Kit ONE (07:14)
[2017-06-23] MEDS ORDERED: Absorbable Gelatin Sponge Size 100 ONE (07:14)
[2017-06-23] MEDS ORDERED: Lactated Ringer's 1,000 ML IV ONE ×2 (07:23→10:00)
[2017-06-23] MEDS ORDERED: Bupivacaine 0.5% Inj(30mL) ONE (07:28)
[2017-06-23] MEDS ORDERED: Propofol 10 mg/ml Inj (20 ML) ONE (07:36)
[2017-06-23] MEDS ORDERED: Rocuronium 10 mg/ml (5 ml) ONE ×2 (07:36→09:24)
[2017-06-23] MEDS ORDERED: Succinylcholine 200 mg/10 ml Inj IV ONE (07:36)
[2017-06-23] MEDS ORDERED: Phenylephrine 10 mg/ml Inj ONE (07:42)
[2017-06-23] MEDS ORDERED: Midazolam 2 MG/2 ML VIAL ONE (08:05)
[2017-06-23] MEDS ORDERED: Sodium Bicarbonate 7.5% (0.9 MEQ/ML) 50ML INJ IV ONE (08:20)
[2017-06-23] MEDS ORDERED: Sodium Chloride 0.9% 1,000 ML IV ONE (08:20)
[2017-06-23 08:24] LABS: INR 1.1 (0.9-1.2); PARTIAL THROMBOPLASTIN TIME 46.9 Seconds (25.6-37.1)
[2017-06-23] MEDS ORDERED: Meropenem 500 mg Inj IVPB ONE (08:40)
[2017-06-23] MEDS ORDERED: ePHEDrine 50 mg/ml Inj ONE (08:47)
[2017-06-23 09:20] LABS: FLUID TYPE SYNOVIAL FLUID
[2017-06-23] MEDS ORDERED: Calcium Chloride 1000 mg/10 ml Syringe IV ONE (09:20)
[2017-06-23] MEDS ORDERED: Dexamethasone 4 mg/1 ml ONE (09:26)
[2017-06-23 10:04] LABS: SF GROSS APPEARANCE BLOODY (CLEAR); SYNOVIAL FLUID MONO/MACROPHAGE 9 % (0-0)
[2017-06-23] MEDS ORDERED: Neostigmine Methylsulfate 2 MG/2 ML ML IV ONE (10:10)
[2017-06-23] MEDS ORDERED: Bacitracin Ointment 30 GM TUBE ONE (11:47)
--- NOTE | 2017-06-23 12:21 | PCM.ANESB2 ---
Popliteal Nerve Block - Popliteal Nerve Block Date of Procedure: 06/23/17 Anesthesiologist: Gordon Pre-Procedure Diagnosis: Painful Left TKA Post-Procedure Diagnosis: Same Procedure Performed: Popliteal Nerve Block Left - Procedure Popliteal Nerve Block: This procedure was explained to the patient that it is for post-operative pain management. Consent was obtained after a thorough discussion with the patient regarding the benefits and possible complications of local anesthetic block of the sciatic nerve at the popliteal level. The patient was brought to the operating room and standard monitors are applied. Time-out was held with the circulating nurse to confirm the correct surgery and the appropriate block. Under general anesthesia, patient's operative leg was gently raised and supported and the groove in between the biceps femoris and vastus lateralis muscles was carefully palpated. The skin approximately 8cm above the popliteal crease was then marked. The ultrasound transducer was then applied to the posterior thigh approximately 8cm above the popliteal crease in the transverse plane and the sciatic nerve before its division was visualized lateral to the popliteal artery and in between the bicep femoris and semimembranosus/ semitendinosus muscles. After identification, the lateral portion of the thigh was prepped with Chloraprep. At this point, a # 21 gauge Stimuplex insulated 4 inch needle was inserted into pre-marked area and advanced in a perpendicular direction. The needle was inserted above the ultrasound transducer in-plane towards the sciatic nerve in a [id number] direction. Needle advancement was performed carefully under direct ultrasound visualization. Nerve stimulator was used and dorsiflexion of the ___left__ foot was elicited at a current of __0.4___ MA. After repeated negative aspiration, __2___cc of _0.375____ % ___bupivicaine with 1:200,000 epinephrine was injected and this was flowed with ___13___ cc of _ 0.375 % ____bupivicaine with 1:200,000 epinephrine . Under ultrasound guidance the local anesthetics were observed surrounding sciatic nerve . The needle was removed intact. The patient tolerated the popliteal nerve block well with stable vital signs and was subsequently prepared for the surgery.
--- NOTE | 2017-06-23 12:24 | PCM.ANESB3 ---
Femoral Nerve Block - Femoral Nerve Block Date of Procedure: 06/23/17 Anesthesiologist: Gordon Pre-Procedure Diagnosis: Painful Left TKA Post-Procedure Diagnosis: Same Procedure Performed: Femoral Nerve Block Left - Procedure Femoral Nerve Block: The procedure was explained to the patient that it is for the post-operative pain management. Consent was obtained after a thorough discussion with the patient regarding the benefits and possible complications of local anesthetic block of the femoral nerve at the inguinal crease area. The patient was brought to the operating room and standard monitors were applied. Time-out was held with the circulating nurse to confirm the correct surgery and the appropriate block. Under general anesthesia, patient was placed in supine position with fully extended lower extremities and the __left groin exposed. The femoral artery was then carefully palpated. The ultrasound transducer was then applied to this area in the transverse plane and the femoral nerve was visualized lateral to the femoral artery and underneath the fascia iliaca. After thorough identification, the inguinal crease area was prepped with Chloraprep. At this point, a #22 gauge Stimuplex 2-inch needle was inserted immediately lateral to the femoral artery pulse at the inguinal crease and advanced perpendicularly. The needle was inserted to the ultrasound transducer in-plane towards the femoral nerve in a [id number] direction. Needle advancement was performed carefully under direct ultrasound visualization. Nerve stimulator was used and twitch of the quadriceps muscle was obtained at current of __0.4___ MA. After negative aspiration, __2___cc of __0.375___% ____bupivicaine with 1: 200,000 epinephrine was injected and this was followed with __18 ____ cc of __0.375 % ___bupivicaine with 1:200,000 epinephrine . Under ultrasound guidance the local anesthetics were observed spreading below fascia iliaca and around the femoral nerve. The needle was removed intact. The patient had stable vital signs, and in no apparent distress. The patient tolerated the femoral nerve block well with stable vital signs and was prepared for subsequent surgery.
[2017-06-23] MEDS: HYDROmorphone 0.5 mg/0.5 ml ISec IVP PRN ×2 (12:25→12:55)
[2017-06-23] MEDS ORDERED: Oxycodone/Acetaminophen 5/325 mg Tab PO PRN (13:48)
[2017-06-23] MEDS ORDERED: Sodium Chloride 0.9% 1,000 ML IV SCH (14:00)
--- NOTE | 2017-06-23 14:05 | PCM.SURG1 ---
Surgeon's Initial Post Op Note - Surgeon's Notes Surgeon: Dorinda Splicer Operator: HILDA Dela Cruz/2nd assist Gulshan Servin Type of Anesthesia: General Endo, Spinal Anesthesia Administered By: DR Rhett Mckee Pre-Operative Diagnosis: Failed/Painful L TKR. arthrofibrosis L knee Operative Findings: as above Post-Operative Diagnosis: as above Operation Performed: Revision L TKR. synovecotmy- ant/post. posterior capsule release. lateral patella release. excision skin/subcutaneous tissue/musc;le Specimen/Specimens Removed: skin/failed TKR/subcutaneous tissue/muscle Estimated Blood Loss: EBL {In ML}: 150 Blood Products Given: N/A, PRBC Drains Used: Hemovac Post-Op Condition: Fair Date of Surgery/Procedure: 06/23/17 Time of Surgery/Procedure: 08:55 (time in room 800)
--- NOTE | 2017-06-23 14:36 | CP.PCM.HP ---
History of Present Illness - History of Present Illness History of Present Illness: 56 yo female with history of CKD, HLD, Seizure and Arthritis was admitted for revision of left knee surgery but was found to have recurrent UTI. She was put on IV Meropenem for 7 days and surgery was held. She was transferred to TCU and completed course of IV antibiotics. Had revision of left TKR earlier today and did well. Present on Admission - Present on Admission Any Indicators Present on Admission: No History of DVT/PE: No History of Uncontrolled Diabetes: No Urinary Catheter: No Decubitus Ulcer Present: No Review of Systems - Review of Systems All systems: reviewed and no additional remarkable complaints except (aside from those mentioned above, 12 point system review were negative by me) Past Patient History - Infectious Disease Hx of Infectious Diseases: None - Tetanus Immunizations Tetanus Immunization: Unknown - Past Medical History & Family History Past Medical History?: Yes - Past Social History Smoking Status: Never Smoked Alcohol: None Drugs: Denies Home Situation {Lives}: With Family - CARDIAC Hx Cardiac Disorders: Yes Hx Hypercholesterolemia: Yes - PULMONARY Hx Respiratory Disorders: No - NEUROLOGICAL Hx Seizures: Yes - HEENT Hx HEENT Problems: No - RENAL Hx Chronic Kidney Disease: Yes Other/Comment: 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 - ENDOCRINE/METABOLIC Hx Endocrine Disorders: No - HEMATOLOGICAL/ONCOLOGICAL Hx Blood Disorders: No Hx AIDS: No Hx Human Immunodeficiency Virus (HIV): No - INTEGUMENTARY Hx Dermatological Problems: No - MUSCULOSKELETAL/RHEUMATOLOGICAL Hx Musculoskeletal Disorders: Yes Hx Arthritis: Yes Hx Back Pain: Yes Hx Falls: No - GASTROINTESTINAL Hx Gastrointestinal Disorders: No - GENITOURINARY/GYNECOLOGICAL Hx Genitourinary Disorders: No Hx Urinary Tract Infection: Yes (current) - PSYCHIATRIC Hx Emotional Abuse: No Hx Physical Abuse: No - SURGICAL HISTORY Hx Surgeries: Yes Hx Orthopedic Surgery: Yes (left total knee) - ANESTHESIA Hx Anesthesia: Yes Hx Anesthesia Reactions: No Hx Malignant Hyperthermia: No Meds Allergies/Adverse Reactions: Allergies Allergy/AdvReac Type Severity Reaction Status Date / Time No Known Allergies Allergy Verified 06/11/17 08:29 Physical Exam - Constitutional Appears: No Acute Distress - Head Exam Head Exam: ATRAUMATIC - Eye Exam Eye Exam: absent: Scleral icterus - ENT Exam ENT Exam: Mucous Membranes Moist - Neck Exam Neck exam: Negative for: Meningismus - Respiratory Exam Respiratory Exam: absent: Rhonchi, Wheezes, Respiratory Distress - Cardiovascular Exam Cardiovascular Exam: REGULAR RHYTHM, +S1, +S2 - GI/Abdominal Exam GI & Abdominal Exam: Soft. absent: Tenderness - Rectal Exam Rectal Exam: Deferred - Neurological Exam Neurological exam: Alert, Oriented x3 - Psychiatric Exam Psychiatric exam: Normal Affect - Skin Skin Exam: Dry, Intact Results - Vital Signs Recent Vital Signs: Last Vital Signs Temp 97.4 F L 06/23/17 13:15 Pulse 54 L 06/23/17 13:30 Resp 18 06/23/17 13:30 BP 106/54 L 06/23/17 13:30 Pulse Ox 100 06/23/17 13:30 - Labs Labs: Laboratory Results - last 24 hr 06/23/17 06/23/17 07:50 09:18 PT 12.0 INR 1.1 APTT 46.9 H Fluid Type Synovial fluid Synovial WBC 188.0 H Synovial RBC 83490.0 H Synovial Neutrophils 58.0 H Synovial Lymphocytes 33.0 H Synov Monos/Macrophage 9 H Assessment & Plan - Assessment and Plan (Free Text) Assessment: 56 yo female with history of CKD, HLD, Seizure and Arthritis was admitted for revision of left knee surgery but was found to have recurrent UTI. She was put on IV Meropenem for 7 days and surgery was held. She was transferred to TCU and completed course of IV antibiotics. Had revision of left TKR earlier today and did well. 1. S/P Revision of Left TKR pain management 2. UTI completed 1 week of IV Meropenem asymptomatic 3. CKD Medullary Sponge Kidney 4. Seizure DO on Keppra
--- NOTE | 2017-06-23 14:39 | RAD ---
PROCEDURE: Left Knee Radiographs. HISTORY: Status post left knee total revision of arthroplasty COMPARISON: Comparison is made with 06/22/2017 FINDINGS: BONES: Interval regression of the left knee arthroplasty compared to the previous exam. The hardware are seen at appropriate position. JOINTS: No evidence of significant joint effusion JOINT EFFUSION: No significant joint effusion. Postsurgical changes are noted. OTHER FINDINGS: None. IMPRESSION: Postsurgical changes.
[2017-06-23] MEDS: ceFAZolin 1 GM in Sodium Chloride 0.9% 100 ML IVPB SCH (16:00)
[2017-06-23] MEDS ORDERED: Meropenem 500 MG in Sodium Chloride 0.9% 100 ML IVPB SCH (17:00)
[2017-06-23] MEDS: Lactobacillus Acidophilus 500 MU Cap PO SCH (17:44)
[2017-06-23] MEDS: Lactated Ringer's 1,000 ML IV SCH ×2 (18:20→22:30)
[2017-06-23] MEDS ORDERED: Patient's Own Med (Meropenem [Merrem Iv] 500 MG) IV SCH (21:00)
[2017-06-24] MEDS: ceFAZolin 1 GM in Sodium Chloride 0.9% 100 ML IVPB SCH (00:14)
[2017-06-24 06:46] LABS: HEMOGLOBIN 9.5 g/dL (12.0-16.0); MEAN CELL VOLUME 80.1 fl (81.0-99.0); MEAN CORPUSCULAR HEMOGLOBIN 28.7 pg (27.0-31.0); MEAN CORPUSCULAR HGB CONC 35.9 g/dL (33.0-37.0); RBC 3.29 Mil/uL (3.80-5.20); WHITE BLOOD COUNT 10.4 K/uL (4.8-10.8)
[2017-06-24 07:26] LABS: CALCIUM 8.6 mg/dL (8.4-10.2)
[2017-06-24 08:07] VITALS: BP 106/68; PULSE 76; RESP 20; TEMP 98.6; O2SAT 96
--- NOTE | 2017-06-24 08:43 | CP.PCM.PN ---
Subjective - Date & Time of Evaluation Date of Evaluation: 06/24/17 Time of Evaluation: 08:40 - Subjective Subjective: S- pt comfortable minimal post op discomfort Objective - Vital Signs/Intake and Output Vital Signs (last 24 hours): Temp Pulse Resp BP Pulse Ox 98.6 F 76 20 106/68 96 06/24/17 08:06 06/24/17 08:06 06/24/17 08:06 06/24/17 08:06 06/24/17 08:06 - Medications Medications: Current Medications Aspirin (Ecotrin) 81 mg PO BID [facility] Atorvastatin Calcium (Lipitor) 10 mg PO DAILY [facility] Cholecalciferol (Vitamin D) 1,000 intlu PO DAILY [facility] Docusate Sodium (Colace) 100 mg PO BID [facility] Last Admin: 06/23/17 17:44 Dose: 100 mg Hydromorphone HCl (Dilaudid) 0.5 mg IVP Q4 PRN PRN Reason: Pain, severe (8-10) Last Admin: 06/23/17 21:46 Dose: 0.5 mg Lactated Ringer's (Lactated Ringer's) 1,000 mls @ 100 mls/hr IV .Q10H [facility] Last Admin: 06/23/17 22:30 Dose: Not Given Sodium Chloride (Sodium Chloride 0.9%) 1,000 mls @ 70 mls/hr IV .[id number] [facility] Stop: 06/24/17 18:34 Meropenem 500 mg/ Sodium (Chloride) 100 mls @ 100 mls/hr IVPB Q12@0900,2100 [facility] Lactobacillus Acidophilus (Bacid Acidophilus) 1 cap PO BID [facility] Last Admin: 06/23/17 17:44 Dose: 1 cap Levetiracetam (Keppra) 500 mg PO BID [facility] Last Admin: 06/23/17 21:40 Dose: 500 mg Ondansetron HCl (Zofran Inj) 4 mg IVP Q6 PRN PRN Reason: Nausea/Vomiting Oxycodone/Acetaminophen (Percocet 5/325 Mg Tab) 2 tab PO Q4 PRN PRN Reason: Pain, moderate (4-7) Stop: 06/26/17 13:49 Last Admin: 06/24/17 07:51 Dose: 2 tab Sodium Bicarbonate (Sodium Bicarbonate Tab) 650 mg PO QID [facility] Last Admin: 06/23/17 21:40 Dose: 650 mg - Labs Labs: 06/24/17 06:25 06/24/17 06:25 PT 12.0 Seconds (9.8-13.1) 06/23/17 07:50 INR 1.1 (0.9-1.2) 06/23/17 07:50 APTT 46.9 Seconds (25.6-37.1) H 06/23/17 07:50 - Additional Findings Additional findings: Objective L knee wound dry and intact N/V intact pt comfortabl;e Assessment and Plan - Assessment and Plan (Free Text) Assessment: A- s/p L TKR(complex Revision) P- full weight bearing/ CPM/ active and passive ROM
[2017-06-24] MEDS ORDERED: Cholecalciferol 1,000 INTLU TAB PO SCH (09:00)
[2017-06-24] MEDS ORDERED: Meropenem 500 MG in Sodium Chloride 0.9% 100 ML IVPB SCH (09:00)
[2017-06-24] MEDS: Lactobacillus Acidophilus 500 MU Cap PO SCH (09:39)
[2017-06-24] MEDS: Lactated Ringer's 1,000 ML IV SCH (11:18)
--- NOTE | 2017-06-24 15:04 | PQF GENQUE ---
PATIENT HAS STAGE IV CKD - DR. ESTRELLA Mills, Please clarify the stage of the chronic kidney disease: if known Stage 1 Stage 2 (mild) Stage 3 (moderate) Stage 4 (severe) Stage 5 Other (please specify) Clinically unable to determine Unknown BUN:36 Creatinine:2.4 Est GFR (Af Am/ Non-Af Am); 25/21 H and P: diagnoses include:.CKD Medullary Sponge Kidney This form is a permanent part of the medical record Clarification of your documentation is requested to better reflect the severity of illness and intensity of treatment of your patient. Indicators present [] Specify: [] [] Specify: [] [] Specify: [] [] Specify: [] Location in the medical record that reflects the above clinical findings: [] Treatment Provided: [] PHYSICIAN'S RESPONSE Based on your medical judgment of the clinical indicators outlined above please clarify the following: [] Practitioner response [] If unable to determine, please check the box, sign and date. Present On Admission (POA) Indicator: [] Present at the time of admission [] Not present at the time of admission [] Clinically Undetermined In responding to this query, please exercise your independent professional judgment. The fact that a question is asked does not imply that any particular answer is desired or expected. Thank you for your clarification on this documentation. If you have any questions please call. * Thank you, Christa Ritchie RN ext. #[phone] MTDD
--- NOTE | 2017-06-24 20:51 | CP.PCM.DIS ---
Provider - Provider Date of Admission: 06/23/17 13:48 Attending physician: Edward Ordonez MD Primary care physician: Cynthia Perez MD Consults: Dr. Seth- orthopedics Dr. Pate- [place] Time Spent in preparation of Discharge (in minutes): 25 Hospital Course - Lab Results Lab Results: Micro Results 06/23/17 09:16 Other: Please Indicate Mycobacterial Culture - Preliminary 06/23/17 09:16 Knee Left Fungal Culture - Preliminary 06/23/17 09:16 Knee - Left Gram Stain - Final 06/23/17 09:16 Knee - Left Wound Culture - Preliminary NO GROWTH AFTER 24 HOURS 06/23/17 09:16 Knee - Left Gram Stain - Final 06/23/17 09:16 Knee - Left Wound Culture - Preliminary NO GROWTH AFTER 24 HOURS 06/23/17 09:16 Knee - Left Gram Stain - Final 06/23/17 09:16 Knee - Left Wound Culture - Preliminary NO GROWTH AFTER 24 HOURS 06/23/17 09:16 Knee - Left Gram Stain - Final 06/23/17 09:16 Knee - Left Wound Culture - Preliminary NO GROWTH AFTER 24 HOURS 06/23/17 09:16 Knee - Left Gram Stain - Final 06/23/17 09:16 Knee - Left Wound Culture - Preliminary NO GROWTH AFTER 24 HOURS 06/23/17 09:16 Knee - Left Gram Stain - Final 06/23/17 09:16 Knee - Left Wound Culture - Preliminary NO GROWTH AFTER 24 HOURS 06/23/17 09:16 Knee - Left Gram Stain - Final 06/23/17 09:16 Knee - Left Wound Culture - Preliminary NO GROWTH AFTER 24 HOURS 06/23/17 09:16 Body Fluid - Knee-Left Gram Stain - Final 06/23/17 09:16 Body Fluid - Knee-Left Body Fluid Culture - Preliminary NO GROWTH AFTER 24 HOURS 06/23/17 09:16 Knee - Left Gram Stain - Final 06/23/17 09:16 Knee - Left Wound Culture - Preliminary NO GROWTH AFTER 24 HOURS Most Recent Lab Values WBC 10.4 K/uL (4.8-10.8) 06/24/17 06:25 RBC 3.29 Mil/uL (3.80-5.20) L 06/24/17 06:25 Hgb 9.5 g/dL (12.0-16.0) L 06/24/17 06:25 Hct 26.3 % (34.0-47.0) L 06/24/17 06:25 MCV 80.1 fl (81.0-99.0) L 06/24/17 06:25 MCH 28.7 pg (27.0-31.0) 06/24/17 06:25 MCHC 35.9 g/dL (33.0-37.0) 06/24/17 06:25 RDW 17.0 % (11.5-14.5) H 06/24/17 06:25 Plt Count 148 K/uL (130-400) 06/24/17 06:25 PT 12.0 Seconds (9.8-13.1) 06/23/17 07:50 INR 1.1 (0.9-1.2) 06/23/17 07:50 APTT 46.9 Seconds (25.6-37.1) H 06/23/17 07:50 Sodium 145 mmol/l (132-148) 06/24/17 06:25 Potassium 3.7 MMOL/L (3.6-5.0) 06/24/17 06:25 Chloride 113 mmol/L (98-107) H 06/24/17 06:25 Carbon Dioxide 19 mmol/L (22-30) L 06/24/17 06:25 Anion Gap 17 (10-20) 06/24/17 06:25 BUN 36 mg/dl (7-17) H 06/24/17 06:25 Creatinine 2.4 mg/dl (0.7-1.2) H 06/24/17 06:25 Est GFR ( Amer) 06/24/17 06:25 Est GFR (Non-Af Amer) 06/24/17 06:25 Random Glucose 169 mg/dL (65-105) H 06/24/17 06:25 Calcium 8.6 mg/dL (8.4-10.2) 06/24/17 06:25 Fluid Type Synovial fluid 06/23/17 09:18 Synovial WBC 188.0 /mm3 (0.0-150.0) H 06/23/17 09:18 Synovial RBC 28375.0 /mm3 (0.0-0.0) H 06/23/17 09:18 Synovial Neutrophils 58.0 % (0-0) H 06/23/17 09:18 Synovial Lymphocytes 33.0 % (0-0) H 06/23/17 09:18 Synov Monos/Macrophage 9 % (0-0) H 06/23/17 09:18 - Hospital Course Hospital Course: 56 yo female with a past medical history of CKD, HLD, seizures, arthritis, who was admitted to the hospital for revision of left knee surgery but was found to have recurrent UTI. She was placed on Merepenem for 7 days and surgery was held. She was transferred to TCU and completed course of antibiotics. Had revision of left TKR on 06/23/2017 and was admitted to med/surg afterwards. Today she was discharged back to TCU in stable condition. Assessment: 56 yo female with history of CKD, HLD, Seizure and Arthritis was admitted for revision of left knee surgery but was found to have recurrent UTI. She was put on IV Meropenem for 7 days and surgery was held. She was transferred to TCU and completed course of IV antibiotics. Had revision of left TKR earlier today and did well. 1. S/P Revision of Left TKR, POD #1 Discharge to TCU pain management with percocet Dr. Seth consultation 2. UTI- resolved completed 1 week of IV Meropenem asymptomatic 3. 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 Seizure DO on Keppra 5. Constipation Continue Colace 6. Hypercholesterolemia - 10 mg po daily DVT prophylaxis - Conservative management with Aspirin 81 mg po BID Discharge Exam - Additional Findings Additional findings: Physical exam: Constitutional- cooperative, awake, alert Head- NCAT, PERRL Eye- PERRL, EOMI ENT- normal exam, MMM. Neck- normal inspection, supple, no JVD Respiratory- CTAB, no wheezes rales rhonchi Cardiovascular- RRR, +S1, +S2 no MRG GI/Abdominal- normal bowel sounds, soft, no mass, no hsm Skin- warm, dry Extremities Exam- normal capillary refill, normal inspection Neurological Exam- alert, awake, oriented Psych- normal mood, normal affect Discharge Plan - Follow Up Plan Condition: GOOD Disposition: TRANSF TO SNF Instructions: Revision Total Joint Arthroplasty (DC), Hemovac Drain Care (DC) Referrals: Cynthia Perez MD [Primary Care Provider] -
--- NOTE | 2017-06-25 21:01 | OP ---
PROCEDURE DATE: 06/23/2017 LOCATION: [facility]. PREOPERATIVE DIAGNOSES: 1. Failed painful left total knee replacement. 2. Arthrofibrosis of the left knee. POSTOPERATIVE DIAGNOSES: 1. Failed painful left total knee replacement. 2. Arthrofibrosis of the left knee. OPERATIVE FINDINGS: As above, severe posterior capsular contracture, synovitis, failed painful left total knee replacement, with severe arthrofibrosis of the left knee. PROCEDURES: 1. Revision left total knee replacement. 2. Synovectomy anterior and posterior 3. Posterior capsular release. 4. Lateral patellar retinacular release. 5. Excision of skin, subcutaneous tissue and muscle. SPECIMENS REMOVED: 1. Failed total knee replacement. 2. Scar. 3. Subcutaneous tissue and muscle and skin. ESTIMATED BLOOD LOSS: 150 mL. BLOOD PRODUCTS GIVEN: 1 unit packed red blood cells. DRAINS: One Hemovac drain. POSTOPERATIVE CONDITION: Fair. TIME OF SURGERY: 8:55; time in the room 8:00. OPERATIVE INDICATION: Lizy oYon is a 56-year-old woman, who had undergone total knee replacement arthroplasty approximately 2 years ago. The patient had a painful result and the patient underwent a manipulation and extensive therapy without improvement. The patient can no longer withstand the discomfort. The patient presented to my office. There was a question of overstuffing of the joint with thickness of the polyethylene. The patient had an established 35-degree contracture to extension, inability to obtain full extension and flexion only 30 degrees more. Pros, cons, risks and benefits of the surgical approach were discussed at length. The patient cannot withstand the discomfort, possibility of mechanical failure, infection, thromboembolic disease, secondary or tertiary surgery was discussed. The patient demanded the knee replacement arthroplasty, situation was discussed with the patient and her 2 daughters. OPERATIVE PROCEDURE: After having obtained informed consent in the above fashion, after the satisfactory induction of spinal and general and regional anesthesia, after having identified the side, site and procedure, and a critical pause/time-out, the patient identified as Lizy Yoon in the supine position with all bony prominences well padded, the right lower extremity was prepped, free draped in usual fashion for lower extremity surgery. The tourniquet had been applied but was not yet inflated. After sterilely prepping and draping, after exsanguinating the limb using a 6-inch Esmarch bandage, the tourniquet which had been applied was inflated to 350 mmHg. An incision was described 3 fingerbreadths proximal and 2 fingerbreadths distal. Skin incision was carried down through the skin and subcutaneous tissue and muscle. Medial arthrotomy was accomplished. Great care was taken not to avulse the patellar ligament. Careful dissection was carried out. A lateral patellar retinacular release was accomplished to mobilize the patella. Dissection was carried around posteromedially to the direct head of the semimembranosus tendon. A portion of the patellar ligament is elevated. There is an iliotibial band contracture and a posterior capsular contracture, and a lateral patellar retinacular contracture. The lateral patellar retinaculum is released. There is an excessive amount of scar tissue around the patella. This patellar meniscus and scar tissue was excised. The patella was everted. The knee is flexed. The tibia was dislocated anteriorly and the initial work on the revision will be accomplished on the tibial side. Great care was taken to stabilize the patellar ligament insertion. The interface between the tibial plate and the cement is developed using an oscillating saw initially. This was followed using Accu-Drive and osteotomes. This was a very tedious portion of the procedure and took approximately 15 minutes. Great care was taken to work medially, laterally, anteriorly. The Accu-Drive was used on the actual anterior aspect of the tibial plate. The tibial polyethylene was removed. Posteriorly, the interface was still developed as well. At this point in time, the tibial component was loosened and removed with a minimal amount of bone loss. At this point time, there was an excessive amount of posterior capsular contracture. The posterior capsule was released, and the posterior capsule was elevated from the posterior aspect of the femur. Great care was taken to avoid injury to the popliteal artery. This having been accomplished, attention was now turned to the femur. The interface between the cement and prosthesis is developed using oscillating saw and the Accu-Drive. The femur was carefully removed again with minimal bone loss. It was marked on the anterior aspect of the femur with the marking guide for the joint line position. This having been accomplished, the excess cement was debrided from the tibia and the femur. Attention was turned to the tibia. At this point in time, computer navigation was accomplished using [place] anterior strut was affixed to the tibia and the initial osteotomy was accomplished. After registration of the medial and lateral malleoli and the offset, varus-valgus was set as there is posterior slope to 0 degrees. The tibial osteotomy was accomplished. All excess cement was removed. At this point in time, sizing was for #2 femoral component, reaming was carried out for a 80-mm extension. This having been accomplished, rotational alignment was defined by the lateral aspect of tibial condyle, mid malleolar axis, medial third of the tibial tuberosity. The alignment jig for the OrthAlign is removed. Attention was turned to the femur. The femoral canal was introduced and the distal femoral cut was set to 2 degrees of valgus. This having been accomplished, the #2 femoral component was employed. The #2 block was applied along the epicondylar axis. Anterior and posterior osteotomies were accomplished. Chamfer cut was accomplished as well, as well as the box cut, the intercondylar box cut. Again, extensive anterior and posterior synovectomy was accomplished. The posterior capsule was released. Lateral patellar retinaculum was released. At this point in time, attention was turned to the patella. Extensive synovectomy was accomplished anteriorly and posteriorly as well as in the area of patella. The patella button was removed using the oscillating saw. Using a high-speed drill, the pegs were removed. Patellar osteotomy was accomplished. Reaming was accomplished to a #35 mm patella. Trialing was accomplished with the stem femoral component. The femoral canal had been reamed. The stemmed #2 femoral component is employed, the #2 tibial tray and a 22 mm polyethylene. Posterior capsule was released and full extension was achieved. This was approximately 125 degrees of flexion. The patella was reamed and aligned, and patellar balance was found to be acceptable. Flexion extension balance was found to be acceptable. Wound was thoroughly irrigated. Lateral patellar retinacular release was completed. The femur, tibia and patella were prepared. The #2 cemented femoral component is employed, the #2 cemented tibial tray, 22 mm polyethylene and the 35 mm patella. The wound was thoroughly irrigated. Balance was excellent. The tourniquet was deflated. Hemostasis controlled with the Aquamantys and the electrocautery. Closure was in layers, #2 fiber wire, followed by Vicryl, and sreedhar for skin over an 8-inch suction Hemovac drain. Harsha Estrada compression dressing and knee immobilizers applied. Postoperative x-rays showed excellent position of the construct. Again, it was discussed with the patient and the family, both preoperatively and postoperatively, the importance of her been compliant with flexion extension and physical therapy. CPM was applied. Postoperative block was employed to allow the patient began to flex the knee. Jerzy Seth MD
== END 2017-06-24 13:45 | DRG 467 ==
LOC: H.OPSURG 06:42 → H.MEDSURG1 13:48
PROVIDERS: ADMIT Hospitalist; ATTEND Hospitalist
PROC: 3E0T3BZ Introduction of Anesthetic Agent into Peripheral Nerves and Plexi, Percutaneous Approach (ICD-10-PCS; 2017-06-23)
PROC: 0HBLXZZ Excision of Left Lower Leg Skin, External Approach (ICD-10-PCS; 2017-06-23)
PROC: 30233N1 Transfusion of Nonautologous Red Blood Cells into Peripheral Vein, Percutaneous Approach (ICD-10-PCS; 2017-06-23)
PROC: 0SRD0J9 Replacement of Left Knee Joint with Synthetic Substitute, Cemented, Open Approach (ICD-10-PCS; principal; 2017-06-23 07:45)
PROC: 0SPD0JZ Removal of Synthetic Substitute from Left Knee Joint, Open Approach (ICD-10-PCS; 2017-06-23 07:45)
PROC: 0SBD0ZZ Excision of Left Knee Joint, Open Approach (ICD-10-PCS; 2017-06-23 07:45)
DX: T84.84XA Pain due to internal orthopedic prosthetic devices, implants and grafts, initial encounter (principal); N18.4 Chronic kidney disease, stage 4 (severe); R56.9 Unspecified convulsions; Q61.5 Medullary cystic kidney; E78.00 Pure hypercholesterolemia, unspecified; E78.5 Hyperlipidemia, unspecified; K59.00 Constipation, unspecified; Y83.1 Surgical operation with implant of artificial internal device as the cause of abnormal reaction of the patient, or of later complication, without mention of misadventure at the time of the procedure; Z79.82 Long term (current) use of aspirin; Z87.440 Personal history of urinary (tract) infections; Z96.652 Presence of left artificial knee joint; M19.90 Unspecified osteoarthritis, unspecified site; M54.9 Dorsalgia, unspecified; M65.9 Synovitis and tenosynovitis, unspecified; M24.662 Ankylosis, left knee

== ENCOUNTER 2017-06-24 11:42 | Inpatient (IN) | payer MEDICARE, OTHER ==
[2017-06-24 14:10] VITALS: BMI 26.5
[2017-06-24 14:12] VITALS: RESP 20
[2017-06-24] MEDS: Lactobacillus Acidophilus 500 MU Cap PO SCH (17:32)
[2017-06-24] MEDS: Oxycodone/Acetaminophen 5/325 mg Tab PO PRN (17:32)
[2017-06-24] MEDS ORDERED: Patient's Own Med (Meropenem [Merrem Iv] 500 MG) IV SCH (21:00)
[2017-06-25] MEDS: Oxycodone/Acetaminophen 5/325 mg Tab PO PRN ×3 (00:09→08:46)
[2017-06-25] MEDS: Lactobacillus Acidophilus 500 MU Cap PO SCH ×2 (08:45→17:41)
[2017-06-25] MEDS: Cholecalciferol 1,000 INTLU TAB PO SCH (08:46)
--- NOTE | 2017-06-25 09:47 | CP.PCM.HP ---
History of Present Illness - History of Present Illness History of Present Illness: Chief Complaint : transferred to TCU for PT post Revision TKR HPI: 56 year old female patient with PMHx of CKD ( Medullary Sponge Kidney) , hyperlipidemia, seizure disorder, arthritis was admitted to [facility] Surg for Revision TKR of the Left Knee. Prior to the Surgery , she completed 1 wk of IV Meropenem for treatment of UTI. Patient undewrent Revision of Left TKR. No post op complications. Patient is doing well. Pain is controlled . She was transferred to TCU to continue PT/OT. Present on Admission - Present on Admission Any Indicators Present on Admission: No Review of Systems - Review of Systems All systems: reviewed and no additional remarkable complaints except Review of Systems: - Review of Systems All systems: reviewed and no additional remarkable complaints except - Constitutional Constitutional: absent: Chills, Fever - EENT Eyes: absent: Change in Vision Nose/Mouth/Throat: absent: Nasal Congestion - Cardiovascular Cardiovascular: absent: Chest Pain, Orthopnea, Palpitations - Respiratory Respiratory: absent: Dyspnea, Hemoptysis - Gastrointestinal Gastrointestinal: absent: Abdominal Pain, Nausea, Vomiting - Genitourinary Genitourinary: Pyuria. absent: Difficulty Urinating, Dysuria, Hematuria - Musculoskeletal Musculoskeletal: Abnormal Gait, Arthralgias - Integumentary Integumentary: absent: Rash - Neurological Neurological: absent: Confusion, Focal Weakness - Psychiatric Psychiatric: absent: Hallucinations - Endocrine Endocrine: absent: Polydipsia, Polyphagia, Polyuria - Hematologic/Lymphatic Hematologic: absent: Easy Bleeding, Easy Bruising Past Patient History - Infectious Disease Hx of Infectious Diseases: None - Tetanus Immunizations Tetanus Immunization: Unknown - Past Medical History & Family History Past Medical History?: Yes - Past Social History Smoking Status: Never Smoked - CARDIAC Hx Hypercholesterolemia: Yes - PULMONARY Hx Respiratory Disorders: No - NEUROLOGICAL Hx Seizures: Yes - HEENT Hx HEENT Problems: No - RENAL Hx Chronic Kidney Disease: Yes Other/Comment: 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 - ENDOCRINE/METABOLIC Hx Endocrine Disorders: No - HEMATOLOGICAL/ONCOLOGICAL Hx Blood Disorders: No Hx AIDS: No Hx Human Immunodeficiency Virus (HIV): No - INTEGUMENTARY Hx Dermatological Problems: No - MUSCULOSKELETAL/RHEUMATOLOGICAL Hx Arthritis: Yes Hx Falls: No - GASTROINTESTINAL Hx Gastrointestinal Disorders: No - GENITOURINARY/GYNECOLOGICAL Hx Genitourinary Disorders: No Hx Urinary Tract Infection: Yes (current) - PSYCHIATRIC Hx Emotional Abuse: No Hx Physical Abuse: No Hx Substance Use: No - SURGICAL HISTORY Hx Surgeries: Yes Hx Orthopedic Surgery: Yes (left total knee, revision of LTKR 06/22) - ANESTHESIA Hx Anesthesia: Yes Hx Anesthesia Reactions: No Hx Malignant Hyperthermia: No Meds Allergies/Adverse Reactions: Allergies Allergy/AdvReac Type Severity Reaction Status Date / Time No Known Allergies Allergy Verified 06/24/17 14:10 Physical Exam - Constitutional Appears: Well, Non-toxic, No Acute Distress - Head Exam Head Exam: ATRAUMATIC, NORMAL INSPECTION, NORMOCEPHALIC - Eye Exam Eye Exam: EOMI, Normal appearance, PERRL Pupil Exam: NORMAL ACCOMODATION - ENT Exam ENT Exam: Mucous Membranes Moist, Normal External Ear Exam - Neck Exam Neck exam: Positive for: Full Rom. Negative for: Meningismus - Respiratory Exam Respiratory Exam: NORMAL BREATHING PATTERN. absent: Rales, Wheezes, Respiratory Distress - Cardiovascular Exam Cardiovascular Exam: REGULAR RHYTHM, +S1, +S2 - GI/Abdominal Exam GI & Abdominal Exam: Normal Bowel Sounds, Soft. absent: Tenderness - Extremities Exam Extremities exam: Positive for: normal capillary refill, pedal pulses present. Negative for: calf tenderness Additional comments: left knee wound - sreedhar intact , looks clean - Back Exam Back exam: FULL ROM. absent: CVA tenderness (L), CVA tenderness (R) - Neurological Exam Neurological exam: Alert, CN II-XII Intact, Oriented x3, Reflexes Normal - Psychiatric Exam Psychiatric exam: Normal Affect, Normal Mood - Skin Skin Exam: Dry, Normal Color, Warm Results - Vital Signs Recent Vital Signs: Last Vital Signs Temp 97.5 F L 06/25/17 08:13 Pulse 90 06/25/17 08:13 Resp 20 06/25/17 08:13 BP 105/56 L 06/25/17 08:13 Pulse Ox 100 06/25/17 08:13 - Labs Result Diagrams: 06/25/17 14:14 06/25/17 14:14 Assessment & Plan - Assessment and Plan (Free Text) Assessment: 56 yo female with history of CKD, HLD, Seizure and Arthritis was admitted for revision of left knee surgery but was found to have recurrent UTI. She was put on IV Meropenem for 7 days and surgery was held. She was transferred to TCU and completed course of IV antibiotics. Patient underwent Revision of left TKR and is doing well post op . She was transferred to TCU for further Rehab. 1. S/P Revision of Left TKR pain management with cici Seth consultation PT/OT 2. 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 Seizure Disorder on Keppra 4. Constipation Continue Colace add Dulcolax 5. Hypercholesterolemia - Lipitor 10 mg po daily DVT prophylaxis -ASA 81 mg bid Decision To Admit - Pt Status Changed To: Hospital Disposition Of: Inpatient - Admit Certification Admit to Inpatient:: After my assessment, the patient will require hospitalization for at least two midnights. This is because of the severity of symptoms shown, intensity of services needed, and/or the medical risk in this patient being treated as an outpatient. - . Bed Request Type: Transitional Care Unit Admitting Physician: Ayana Pinzon
--- NOTE | 2017-06-25 13:08 | CP.PCM.PN ---
Subjective - Date & Time of Evaluation Date of Evaluation: 06/25/17 Time of Evaluation: 11:00 - Subjective Subjective: Patient states pain is well controlled. Denies numbness/tingling/CP/SOB. Tolerating PT well. Objective - Vital Signs/Intake and Output Vital Signs (last 24 hours): Temp Pulse Resp BP Pulse Ox 97.5 F L 101 H 20 105/56 L 100 06/25/17 08:13 06/25/17 11:47 06/25/17 08:13 06/25/17 08:13 06/25/17 08:13 - Medications Medications: Current Medications Aspirin (Ecotrin) 81 mg PO BID [facility] Last Admin: 06/25/17 08:46 Dose: 81 mg Atorvastatin Calcium (Lipitor) 10 mg PO DAILY [facility] Bisacodyl (Dulcolax) 5 mg PO DAILY PRN PRN Reason: Constipation Cholecalciferol (Vitamin D) 1,000 intlu PO DAILY [facility] Last Admin: 06/25/17 08:46 Dose: 1,000 intlu Docusate Sodium (Colace) 100 mg PO BID [facility] Last Admin: 06/25/17 08:45 Dose: 100 mg Lactobacillus Acidophilus (Bacid Acidophilus) 1 cap PO BID [facility] Last Admin: 06/25/17 08:45 Dose: 1 cap Levetiracetam (Keppra) 500 mg PO BID [facility] Last Admin: 06/25/17 08:46 Dose: 500 mg Oxycodone/Acetaminophen (Percocet 5/325 Mg Tab) 1 tab PO Q4 PRN PRN Reason: Pain, moderate (4-7) Stop: 06/27/17 14:41 Last Admin: 06/25/17 08:46 Dose: 1 tab Sodium Bicarbonate (Sodium Bicarbonate Tab) 650 mg PO QID [facility] Last Admin: 06/25/17 08:45 Dose: 650 mg - Extremities Exam Additional comments: Left knee: hemovac pulled, dressing changed. Small amount sang drainage, no erythema> +ROM ankle/toes, sensation intact +DP pulse calves soft NT neg homans Assessment and Plan (1) Status post revision of total knee replacement Assessment & Plan: cont PT/ot VTE proph repeat labs d/w Dr. Seth, agrees with above Status: Acute
--- NOTE | 2017-06-25 13:20 | CP.PCM.CON ---
History of Present Illness - History of Present Illness History of Present Illness: 74 year old female status post total knee replacement Review of Systems - Musculoskeletal Musculoskeletal: Abnormal Gait, Limited Range of Motion, Muscle Weakness Past Patient History - Infectious Disease Hx of Infectious Diseases: None - Tetanus Immunizations Tetanus Immunization: Unknown - Past Medical History & Family History Past Medical History?: Yes - Past Social History Smoking Status: Never Smoked - CARDIAC Hx Hypercholesterolemia: Yes - PULMONARY Hx Respiratory Disorders: No - NEUROLOGICAL Hx Seizures: Yes - HEENT Hx HEENT Problems: No - RENAL Hx Chronic Kidney Disease: Yes Other/Comment: 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 - ENDOCRINE/METABOLIC Hx Endocrine Disorders: No - HEMATOLOGICAL/ONCOLOGICAL Hx Blood Disorders: No Hx AIDS: No Hx Human Immunodeficiency Virus (HIV): No - INTEGUMENTARY Hx Dermatological Problems: No - MUSCULOSKELETAL/RHEUMATOLOGICAL Hx Arthritis: Yes Hx Falls: No - GASTROINTESTINAL Hx Gastrointestinal Disorders: No - GENITOURINARY/GYNECOLOGICAL Hx Genitourinary Disorders: No Hx Urinary Tract Infection: Yes (current) - PSYCHIATRIC Hx Emotional Abuse: No Hx Physical Abuse: No Hx Substance Use: No - SURGICAL HISTORY Hx Surgeries: Yes Hx Orthopedic Surgery: Yes (left total knee, revision of LTKR 06/22) - ANESTHESIA Hx Anesthesia: Yes Hx Anesthesia Reactions: No Hx Malignant Hyperthermia: No Meds Allergies/Adverse Reactions: Allergies Allergy/AdvReac Type Severity Reaction Status Date / Time No Known Allergies Allergy Verified 06/24/17 14:10 - Medications Medications: Current Medications Aspirin (Ecotrin) 81 mg PO BID [facility] Last Admin: 06/25/17 08:46 Dose: 81 mg Atorvastatin Calcium (Lipitor) 10 mg PO DAILY [facility] Last Admin: 06/25/17 13:13 Dose: 10 mg Bisacodyl (Dulcolax) 5 mg PO DAILY PRN PRN Reason: Constipation Cholecalciferol (Vitamin D) 1,000 intlu PO DAILY [facility] Last Admin: 06/25/17 08:46 Dose: 1,000 intlu Docusate Sodium (Colace) 100 mg PO BID [facility] Last Admin: 06/25/17 08:45 Dose: 100 mg Lactobacillus Acidophilus (Bacid Acidophilus) 1 cap PO BID [facility] Last Admin: 06/25/17 08:45 Dose: 1 cap Levetiracetam (Keppra) 500 mg PO BID [facility] Last Admin: 06/25/17 08:46 Dose: 500 mg Oxycodone/Acetaminophen (Percocet 5/325 Mg Tab) 1 tab PO Q4 PRN PRN Reason: Pain, moderate (4-7) Stop: 06/27/17 14:41 Last Admin: 06/25/17 08:46 Dose: 1 tab Sodium Bicarbonate (Sodium Bicarbonate Tab) 650 mg PO QID [facility] Last Admin: 06/25/17 13:13 Dose: 650 mg Physical Exam - Head Exam Head Exam: ATRAUMATIC, NORMAL INSPECTION, NORMOCEPHALIC - Eye Exam Eye Exam: EOMI, Normal appearance, PERRL Pupil Exam: NORMAL ACCOMODATION - ENT Exam ENT Exam: Mucous Membranes Moist, Normal Exam - Neck Exam Neck exam: Positive for: Normal Inspection - Respiratory Exam Respiratory Exam: Clear to Auscultation Bilateral, NORMAL BREATHING PATTERN - Cardiovascular Exam Cardiovascular Exam: REGULAR RHYTHM - GI/Abdominal Exam GI & Abdominal Exam: Normal Bowel Sounds - Rectal Exam Rectal Exam: NORMAL INSPECTION - Exam External exam: NORMAL EXTERNAL EXAM - Extremities Exam Extremities exam: Positive for: normal inspection - Back Exam Back exam: NORMAL INSPECTION - Neurological Exam Neurological exam: Alert, CN II-XII Intact - Psychiatric Exam Psychiatric exam: Normal Affect, Normal Mood - Skin Skin Exam: Dry, Intact Results - Vital Signs Recent Vital Signs: Last Vital Signs Temp 97.5 F L 06/25/17 08:13 Pulse 101 H 06/25/17 11:47 Resp 20 06/25/17 08:13 BP 105/56 L 06/25/17 08:13 Pulse Ox 100 06/25/17 08:13 Assessment & Plan (1) Status post revision of total knee replacement Status: Acute (2) Seizure Status: Acute (3) UTI (urinary tract infection) Status: Acute (4) Arthritis of left knee Assessment and Plan: plan for physical, occupational, therapy range of motion, strenghtening, transfers and gait training Status: Chronic (5) CKD (chronic kidney disease) Status: Chronic
[2017-06-25 14:34] LABS: HEMOGLOBIN 8.9 g/dL (12.0-16.0); MEAN CELL VOLUME 81.1 fl (81.0-99.0); MEAN CORPUSCULAR HEMOGLOBIN 27.5 pg (27.0-31.0); MEAN CORPUSCULAR HGB CONC 33.9 g/dL (33.0-37.0); RBC 3.22 Mil/uL (3.80-5.20); RED CELL DISTRIBUTION WIDTH 17.5 % (11.5-14.5); WHITE BLOOD COUNT 12.4 K/uL (4.8-10.8)
[2017-06-25 14:57] LABS: CALCIUM 8.6 mg/dL (8.4-10.2)
[2017-06-25] MEDS: Bisacodyl 5mg EC Tab PO PRN (21:37)
[2017-06-26] MEDS: Lactobacillus Acidophilus 500 MU Cap PO SCH ×2 (08:40→17:21)
[2017-06-26] MEDS: Cholecalciferol 1,000 INTLU TAB PO SCH (08:43)
[2017-06-26] MEDS: Bisacodyl 5mg EC Tab PO PRN (12:43)
--- NOTE | 2017-06-26 13:04 | CP.PCM.PN ---
Subjective - Date & Time of Evaluation Date of Evaluation: 06/26/17 Time of Evaluation: 08:00 - Subjective Subjective: Patient states she is tolerating PT well. She is comfortable, no new complaints. Objective - Vital Signs/Intake and Output Vital Signs (last 24 hours): Temp Pulse Resp BP Pulse Ox 97.5 F L 96 H 20 110/62 100 06/26/17 09:05 06/26/17 09:05 06/26/17 09:05 06/26/17 09:05 06/26/17 09:05 - Medications Medications: Current Medications Aspirin (Ecotrin) 81 mg PO BID [facility] Last Admin: 06/26/17 08:43 Dose: 81 mg Atorvastatin Calcium (Lipitor) 10 mg PO DAILY [facility] Last Admin: 06/26/17 08:42 Dose: 10 mg Bisacodyl (Dulcolax) 5 mg PO DAILY PRN PRN Reason: Constipation Last Admin: 06/26/17 12:43 Dose: 5 mg Cholecalciferol (Vitamin D) 1,000 intlu PO DAILY [facility] Last Admin: 06/26/17 08:43 Dose: 1,000 intlu Docusate Sodium (Colace) 100 mg PO BID [facility] Last Admin: 06/26/17 08:41 Dose: 100 mg Iron Sucrose 100 mg/ Sodium (Chloride) 105 mls @ 105 mls/hr IVPB DAILY [facility] Stop: 06/27/17 09:59 Last Admin: 06/26/17 11:27 Dose: 105 mls/hr Lactobacillus Acidophilus (Bacid Acidophilus) 1 cap PO BID [facility] Last Admin: 06/26/17 08:40 Dose: 1 cap Levetiracetam (Keppra) 500 mg PO BID [facility] Last Admin: 06/26/17 08:42 Dose: 500 mg Oxycodone/Acetaminophen (Percocet 5/325 Mg Tab) 1 tab PO Q4 PRN PRN Reason: Pain, moderate (4-7) Stop: 06/27/17 14:41 Last Admin: 06/25/17 08:46 Dose: 1 tab Sodium Bicarbonate (Sodium Bicarbonate Tab) 650 mg PO QID [facility] Last Admin: 06/26/17 12:22 Dose: 650 mg - Labs Labs: 06/25/17 14:14 06/25/17 14:14 - Extremities Exam Additional comments: +ROM ankle/toes, sensationintact +DP pulse calves soft NT neg homans incision intact, knee mod swelling no erythema Assessment and Plan (1) Status post revision of total knee replacement Assessment & Plan: POD#3 s/p left revision TKR-PT/OT knee immob vte proph ortho stable d/w Dr. Seth, agrees with above Status: Acute
--- NOTE | 2017-06-26 15:30 | CP.PCM.PN ---
Subjective - Date & Time of Evaluation Date of Evaluation: 06/26/17 Time of Evaluation: 13:30 - Subjective Subjective: Pt seen and examined. Doing well with therapy. Denied any complaint. Objective - Vital Signs/Intake and Output Vital Signs (last 24 hours): Temp Pulse Resp BP Pulse Ox 97.5 F L 96 H 20 110/62 100 06/26/17 09:05 06/26/17 09:05 06/26/17 09:05 06/26/17 09:05 06/26/17 09:05 - Medications Medications: Current Medications Aspirin (Ecotrin) 81 mg PO BID [facility] Last Admin: 06/26/17 08:43 Dose: 81 mg Atorvastatin Calcium (Lipitor) 10 mg PO DAILY [facility] Last Admin: 06/26/17 08:42 Dose: 10 mg Bisacodyl (Dulcolax) 5 mg PO DAILY PRN PRN Reason: Constipation Last Admin: 06/26/17 12:43 Dose: 5 mg Cholecalciferol (Vitamin D) 1,000 intlu PO DAILY [facility] Last Admin: 06/26/17 08:43 Dose: 1,000 intlu Docusate Sodium (Colace) 100 mg PO BID [facility] Last Admin: 06/26/17 08:41 Dose: 100 mg Iron Sucrose 100 mg/ Sodium (Chloride) 105 mls @ 105 mls/hr IVPB DAILY [facility] Stop: 06/27/17 09:59 Last Admin: 06/26/17 11:27 Dose: 105 mls/hr Lactobacillus Acidophilus (Bacid Acidophilus) 1 cap PO BID [facility] Last Admin: 06/26/17 08:40 Dose: 1 cap Levetiracetam (Keppra) 500 mg PO BID [facility] Last Admin: 06/26/17 08:42 Dose: 500 mg Oxycodone/Acetaminophen (Percocet 5/325 Mg Tab) 1 tab PO Q4 PRN PRN Reason: Pain, moderate (4-7) Stop: 06/27/17 14:41 Last Admin: 06/25/17 08:46 Dose: 1 tab Sodium Bicarbonate (Sodium Bicarbonate Tab) 650 mg PO QID [facility] Last Admin: 06/26/17 12:22 Dose: 650 mg - Labs Labs: 06/25/17 14:14 06/25/17 14:14 - Constitutional Appears: No Acute Distress - Head Exam Head Exam: ATRAUMATIC - Eye Exam Eye Exam: absent: Scleral icterus - ENT Exam ENT Exam: Mucous Membranes Moist - Neck Exam Neck Exam: absent: Meningismus - Respiratory Exam Respiratory Exam: absent: Rhonchi, Wheezes, Respiratory Distress - Cardiovascular Exam Cardiovascular Exam: REGULAR RHYTHM, +S1, +S2 - GI/Abdominal Exam GI & Abdominal Exam: Soft. absent: Tenderness - Rectal Exam Rectal Exam: Deferred - Neurological Exam Neurological Exam: Alert, Oriented x3 - Psychiatric Exam Psychiatric exam: Normal Affect - Skin Skin Exam: Dry, Intact Assessment and Plan - Assessment and Plan (Free Text) Assessment: 56 yo female with history of CKD, HLD, Seizure and Arthritis was admitted for revision of left knee surgery but was found to have recurrent UTI. Surgery was held and patient put on IV Meropenem for 7 days. Patient completed course of antibiotics in TCU then had revision of left TKR on 06/23/2017. She returned to TCU for continuation of her therapy. 1. S/P Revision of Left TKR POD # 3 continue PT/OT physiatry consult with Dr Maeve Seth following up case 2. 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 Seizure Disorder on Keppra 4. Hypercholesterolemia continue Lipitor 10 mg po daily 5. DVT prophylaxis ASA 81 mg PO bid
[2017-06-27] MEDS: Oxycodone/Acetaminophen 5/325 mg Tab PO PRN ×4 (06:04→23:52)
[2017-06-27] MEDS: Cholecalciferol 1,000 INTLU TAB PO SCH (08:53)
[2017-06-27] MEDS: Lactobacillus Acidophilus 500 MU Cap PO SCH ×2 (08:56→17:50)
--- NOTE | 2017-06-27 14:38 | CP.PCM.PN ---
Subjective - Date & Time of Evaluation Date of Evaluation: 06/26/17 Time of Evaluation: 14:00 - Subjective Subjective: no acute knee pain Objective - Vital Signs/Intake and Output Vital Signs (last 24 hours): Temp Pulse Resp BP Pulse Ox 97.7 F 75 20 92/50 L 98 06/27/17 09:36 06/27/17 09:36 06/27/17 09:36 06/27/17 09:36 06/27/17 09:36 - Medications Medications: Current Medications Aspirin (Ecotrin) 81 mg PO BID [facility] Last Admin: 06/27/17 08:54 Dose: 81 mg Atorvastatin Calcium (Lipitor) 10 mg PO DAILY [facility] Last Admin: 06/27/17 08:54 Dose: 10 mg Bisacodyl (Dulcolax) 5 mg PO DAILY PRN PRN Reason: Constipation Last Admin: 06/26/17 12:43 Dose: 5 mg Cholecalciferol (Vitamin D) 1,000 intlu PO DAILY [facility] Last Admin: 06/27/17 08:53 Dose: 1,000 intlu Docusate Sodium (Colace) 100 mg PO BID [facility] Last Admin: 06/27/17 08:53 Dose: 100 mg Lactobacillus Acidophilus (Bacid Acidophilus) 1 cap PO BID [facility] Last Admin: 06/27/17 08:56 Dose: 1 cap Levetiracetam (Keppra) 500 mg PO BID [facility] Last Admin: 06/27/17 08:53 Dose: 500 mg Oxycodone/Acetaminophen (Percocet 5/325 Mg Tab) 1 tab PO Q4 PRN PRN Reason: Pain, moderate (4-7) Stop: 06/27/17 14:41 Last Admin: 06/27/17 10:06 Dose: 1 tab Sodium Bicarbonate (Sodium Bicarbonate Tab) 650 mg PO QID [facility] Last Admin: 06/27/17 08:53 Dose: 650 mg - Labs Labs: 06/25/17 14:14 06/25/17 14:14 - Head Exam Head Exam: ATRAUMATIC, NORMAL INSPECTION, NORMOCEPHALIC - Eye Exam Eye Exam: EOMI, Normal appearance Pupil Exam: NORMAL ACCOMODATION - ENT Exam ENT Exam: Mucous Membranes Moist, Normal Exam - Neck Exam Neck Exam: Full ROM, Normal Inspection - Respiratory Exam Respiratory Exam: NORMAL BREATHING PATTERN - Cardiovascular Exam Cardiovascular Exam: REGULAR RHYTHM - GI/Abdominal Exam GI & Abdominal Exam: Soft, Normal Bowel Sounds - Rectal Exam Rectal Exam: NORMAL INSPECTION - Exam External exam: NORMAL EXTERNAL EXAM - Extremities Exam Extremities Exam: Normal Capillary Refill - Back Exam Back Exam: NORMAL INSPECTION - Neurological Exam Neurological Exam: Alert, Awake Neuro motor strength exam: Left Upper Extremity: 4, Right Upper Extremity: 4, Left Lower Extremity: 3, Right Lower Extremity: 4 - Psychiatric Exam Psychiatric exam: Normal Affect, Normal Mood - Skin Skin Exam: Dry, Intact Assessment and Plan (1) Status post revision of total knee replacement Assessment & Plan: plan for quad strenghtening transfers and gait training Status: Acute (2) Seizure Status: Acute (3) UTI (urinary tract infection) Status: Acute (4) Arthritis of left knee Status: Chronic (5) CKD (chronic kidney disease) Status: Chronic
--- NOTE | 2017-06-27 14:40 | CP.PCM.PN ---
Subjective - Date & Time of Evaluation Date of Evaluation: 06/27/17 Time of Evaluation: 13:00 - Subjective Subjective: no acute complaints af any knee pain Objective - Vital Signs/Intake and Output Vital Signs (last 24 hours): Temp Pulse Resp BP Pulse Ox 97.7 F 75 20 92/50 L 98 06/27/17 09:36 06/27/17 09:36 06/27/17 09:36 06/27/17 09:36 06/27/17 09:36 - Medications Medications: Current Medications Aspirin (Ecotrin) 81 mg PO BID [facility] Last Admin: 06/27/17 08:54 Dose: 81 mg Atorvastatin Calcium (Lipitor) 10 mg PO DAILY [facility] Last Admin: 06/27/17 08:54 Dose: 10 mg Bisacodyl (Dulcolax) 5 mg PO DAILY PRN PRN Reason: Constipation Last Admin: 06/26/17 12:43 Dose: 5 mg Cholecalciferol (Vitamin D) 1,000 intlu PO DAILY [facility] Last Admin: 06/27/17 08:53 Dose: 1,000 intlu Docusate Sodium (Colace) 100 mg PO BID [facility] Last Admin: 06/27/17 08:53 Dose: 100 mg Lactobacillus Acidophilus (Bacid Acidophilus) 1 cap PO BID [facility] Last Admin: 06/27/17 08:56 Dose: 1 cap Levetiracetam (Keppra) 500 mg PO BID [facility] Last Admin: 06/27/17 08:53 Dose: 500 mg Oxycodone/Acetaminophen (Percocet 5/325 Mg Tab) 1 tab PO Q4 PRN PRN Reason: Pain, moderate (4-7) Stop: 06/27/17 14:41 Last Admin: 06/27/17 10:06 Dose: 1 tab Sodium Bicarbonate (Sodium Bicarbonate Tab) 650 mg PO QID [facility] Last Admin: 06/27/17 08:53 Dose: 650 mg - Labs Labs: 06/25/17 14:14 06/25/17 14:14 - Head Exam Head Exam: ATRAUMATIC, NORMAL INSPECTION, NORMOCEPHALIC - Eye Exam Eye Exam: EOMI, Normal appearance, PERRL Pupil Exam: NORMAL ACCOMODATION - ENT Exam ENT Exam: Mucous Membranes Moist, Normal Exam - Neck Exam Neck Exam: Normal Inspection - Respiratory Exam Respiratory Exam: NORMAL BREATHING PATTERN - Cardiovascular Exam Cardiovascular Exam: REGULAR RHYTHM - GI/Abdominal Exam GI & Abdominal Exam: Soft, Normal Bowel Sounds - Rectal Exam Rectal Exam: NORMAL INSPECTION - Exam External exam: NORMAL EXTERNAL EXAM - Extremities Exam Extremities Exam: Full ROM, Normal Capillary Refill, Normal Inspection - Back Exam Back Exam: NORMAL INSPECTION - Neurological Exam Neurological Exam: Alert, Awake Neuro motor strength exam: Left Upper Extremity: 4, Right Upper Extremity: 4, Left Lower Extremity: 3, Right Lower Extremity: 4 - Psychiatric Exam Psychiatric exam: Normal Affect, Normal Mood - Skin Skin Exam: Dry, Intact Assessment and Plan (1) Status post revision of total knee replacement Assessment & Plan: physical, occupational therapy for range of motion, balance and gait training Status: Acute (2) Seizure Status: Acute (3) UTI (urinary tract infection) Status: Acute (4) Arthritis of left knee Status: Chronic (5) CKD (chronic kidney disease) Status: Chronic
[2017-06-28] MEDS: Oxycodone/Acetaminophen 5/325 mg Tab PO PRN ×2 (09:07→15:48)
[2017-06-28] MEDS: Lactobacillus Acidophilus 500 MU Cap PO SCH ×2 (09:07→16:02)
[2017-06-28] MEDS: Bisacodyl 5mg EC Tab PO PRN (09:09)
[2017-06-28] MEDS: Cholecalciferol 1,000 INTLU TAB PO SCH (09:09)
[2017-06-29] MEDS: Oxycodone/Acetaminophen 5/325 mg Tab PO PRN ×4 (00:04→20:37)
[2017-06-29] MEDS: Cholecalciferol 1,000 INTLU TAB PO SCH (08:53)
[2017-06-29] MEDS: Lactobacillus Acidophilus 500 MU Cap PO SCH ×2 (08:57→16:48)
[2017-06-30] MEDS: Oxycodone/Acetaminophen 5/325 mg Tab PO PRN ×3 (01:40→13:22)
[2017-06-30] MEDS: Lactobacillus Acidophilus 500 MU Cap PO SCH ×2 (08:53→17:19)
[2017-06-30] MEDS: Cholecalciferol 1,000 INTLU TAB PO SCH (08:53)
[2017-07-01] MEDS: Oxycodone/Acetaminophen 5/325 mg Tab PO PRN ×2 (08:26→08:55)
[2017-07-01] MEDS: Cholecalciferol 1,000 INTLU TAB PO SCH (08:27)
[2017-07-01] MEDS: Lactobacillus Acidophilus 500 MU Cap PO SCH ×2 (08:28→16:42)
--- NOTE | 2017-07-01 13:36 | CP.PCM.PN ---
Subjective - Date & Time of Evaluation Date of Evaluation: 07/01/17 Time of Evaluation: 12:20 - Subjective Subjective: patinet with complaints of mild calf discomfort Objective - Vital Signs/Intake and Output Vital Signs (last 24 hours): Temp Pulse Resp BP Pulse Ox 97.7 F 72 20 113/60 99 07/01/17 09:00 07/01/17 09:00 07/01/17 09:00 07/01/17 09:00 07/01/17 09:00 - Medications Medications: Current Medications Aspirin (Ecotrin) 81 mg PO BID [facility] Last Admin: 07/01/17 08:27 Dose: 81 mg Atorvastatin Calcium (Lipitor) 10 mg PO DAILY [facility] Last Admin: 07/01/17 08:28 Dose: 10 mg Bisacodyl (Dulcolax) 5 mg PO DAILY PRN PRN Reason: Constipation Last Admin: 06/28/17 09:09 Dose: 5 mg Cholecalciferol (Vitamin D) 1,000 intlu PO DAILY [facility] Last Admin: 07/01/17 08:27 Dose: 1,000 intlu Docusate Sodium (Colace) 100 mg PO BID [facility] Last Admin: 07/01/17 08:27 Dose: 100 mg Lactobacillus Acidophilus (Bacid Acidophilus) 1 cap PO BID [facility] Last Admin: 07/01/17 08:28 Dose: 1 cap Lactulose (Enulose) 20 gm PO BID PRN PRN Reason: Constipation Last Admin: 06/28/17 15:49 Dose: 20 gm Levetiracetam (Keppra) 500 mg PO BID [facility] Last Admin: 07/01/17 08:27 Dose: 500 mg Oxycodone/Acetaminophen (Percocet 5/325 Mg Tab) 1 tab PO Q4 PRN PRN Reason: Pain, moderate (4-7) Stop: 07/04/17 08:54 Last Admin: 07/01/17 08:55 Dose: 1 tab Sodium Bicarbonate (Sodium Bicarbonate Tab) 650 mg PO QID [facility] Last Admin: 07/01/17 12:29 Dose: 650 mg - Labs Labs: 06/25/17 14:14 06/25/17 14:14 - Head Exam Head Exam: ATRAUMATIC, NORMAL INSPECTION, NORMOCEPHALIC - Eye Exam Eye Exam: EOMI, Normal appearance, PERRL Pupil Exam: NORMAL ACCOMODATION - ENT Exam ENT Exam: Mucous Membranes Moist, Normal Exam - Neck Exam Neck Exam: Normal Inspection - Respiratory Exam Respiratory Exam: NORMAL BREATHING PATTERN - Cardiovascular Exam Cardiovascular Exam: REGULAR RHYTHM - GI/Abdominal Exam GI & Abdominal Exam: Soft, Normal Bowel Sounds - Rectal Exam Rectal Exam: NORMAL INSPECTION - Exam Exam: Testicular Vertical Lie - Extremities Exam Extremities Exam: Normal Capillary Refill, Normal Inspection - Back Exam Back Exam: NORMAL INSPECTION - Neurological Exam Neurological Exam: Alert, Awake, CN II-XII Intact Neuro motor strength exam: Left Upper Extremity: 4, Right Upper Extremity: 4, Left Lower Extremity: 3, Right Lower Extremity: 4 - Psychiatric Exam Psychiatric exam: Normal Affect, Normal Mood - Skin Skin Exam: Dry, Intact Assessment and Plan (1) Status post revision of total knee replacement Assessment & Plan: planning for DC for patient patinet for duplex venous scan rule out DVT Status: Acute (2) Seizure Status: Acute (3) UTI (urinary tract infection) Status: Acute (4) Arthritis of left knee Status: Chronic (5) CKD (chronic kidney disease) Status: Chronic
--- NOTE | 2017-07-01 13:39 | CP.PCM.PN ---
Subjective - Date & Time of Evaluation Date of Evaluation: 06/29/17 Time of Evaluation: 12:00 - Subjective Subjective: no acute complaints at present Objective - Vital Signs/Intake and Output Vital Signs (last 24 hours): Temp Pulse Resp BP Pulse Ox 97.7 F 72 20 113/60 99 07/01/17 09:00 07/01/17 09:00 07/01/17 09:00 07/01/17 09:00 07/01/17 09:00 - Medications Medications: Current Medications Aspirin (Ecotrin) 81 mg PO BID [facility] Last Admin: 07/01/17 08:27 Dose: 81 mg Atorvastatin Calcium (Lipitor) 10 mg PO DAILY [facility] Last Admin: 07/01/17 08:28 Dose: 10 mg Bisacodyl (Dulcolax) 5 mg PO DAILY PRN PRN Reason: Constipation Last Admin: 06/28/17 09:09 Dose: 5 mg Cholecalciferol (Vitamin D) 1,000 intlu PO DAILY [facility] Last Admin: 07/01/17 08:27 Dose: 1,000 intlu Docusate Sodium (Colace) 100 mg PO BID [facility] Last Admin: 07/01/17 08:27 Dose: 100 mg Lactobacillus Acidophilus (Bacid Acidophilus) 1 cap PO BID [facility] Last Admin: 07/01/17 08:28 Dose: 1 cap Lactulose (Enulose) 20 gm PO BID PRN PRN Reason: Constipation Last Admin: 06/28/17 15:49 Dose: 20 gm Levetiracetam (Keppra) 500 mg PO BID [facility] Last Admin: 07/01/17 08:27 Dose: 500 mg Oxycodone/Acetaminophen (Percocet 5/325 Mg Tab) 1 tab PO Q4 PRN PRN Reason: Pain, moderate (4-7) Stop: 07/04/17 08:54 Last Admin: 07/01/17 08:55 Dose: 1 tab Sodium Bicarbonate (Sodium Bicarbonate Tab) 650 mg PO QID [facility] Last Admin: 07/01/17 12:29 Dose: 650 mg - Labs Labs: 06/25/17 14:14 06/25/17 14:14 - Head Exam Head Exam: ATRAUMATIC, NORMAL INSPECTION, NORMOCEPHALIC - Eye Exam Eye Exam: EOMI, Normal appearance, PERRL Pupil Exam: NORMAL ACCOMODATION - ENT Exam ENT Exam: Mucous Membranes Moist, Normal Exam - Neck Exam Neck Exam: Normal Inspection - Respiratory Exam Respiratory Exam: Clear to Ausculation Bilateral, NORMAL BREATHING PATTERN - Cardiovascular Exam Cardiovascular Exam: REGULAR RHYTHM - GI/Abdominal Exam GI & Abdominal Exam: Soft, Normal Bowel Sounds - Rectal Exam Rectal Exam: NORMAL INSPECTION - Exam External exam: NORMAL EXTERNAL EXAM - Extremities Exam Extremities Exam: Full ROM, Normal Capillary Refill, Normal Inspection - Back Exam Back Exam: NORMAL INSPECTION - Neurological Exam Neurological Exam: Alert, Awake Neuro motor strength exam: Left Upper Extremity: 4, Right Upper Extremity: 4, Left Lower Extremity: 3, Right Lower Extremity: 4 - Psychiatric Exam Psychiatric exam: Normal Affect, Normal Mood - Skin Skin Exam: Dry, Intact Assessment and Plan (1) Status post revision of total knee replacement Assessment & Plan: plan for range of motionm, strenghtening, transfers and gait training, Pt Ot therapy Status: Acute (2) Seizure Status: Acute (3) UTI (urinary tract infection) Status: Acute (4) Arthritis of left knee Status: Chronic (5) CKD (chronic kidney disease) Status: Chronic
[2017-07-01 15:23] LABS: BASO % 0.2 % (0.0-2.0); EOS # 0.4 K/uL (0.0-0.7); EOS % 3.4 % (0.0-4.0); HEMOGLOBIN 8.1 g/dL (12.0-16.0); LYMPH # 1.8 K/uL (1.0-4.3); LYMPH % 17.3 % (20.0-40.0); MEAN CELL VOLUME 79.1 fl (81.0-99.0); MEAN CORPUSCULAR HEMOGLOBIN 28.4 pg (27.0-31.0); MEAN CORPUSCULAR HGB CONC 35.8 g/dL (33.0-37.0); MEAN PLATELET VOLUME 7.3 fl (7.2-11.7); MONO % 9.2 % (0.0-10.0); NEUT # 7.5 K/uL (1.8-7.0); NEUT % 69.9 % (50.0-75.0); RBC 2.84 Mil/uL (3.80-5.20); RED CELL DISTRIBUTION WIDTH 17.3 % (11.5-14.5); WHITE BLOOD COUNT 10.7 K/uL (4.8-10.8)
[2017-07-01 15:35] LABS: CALCIUM 8.7 mg/dL (8.4-10.2)
--- NOTE | 2017-07-01 16:28 | US ---
HISTORY: LT TKR . . PRIORS: None. FINDINGS: 2-D, color and duplex Doppler analysis of the lower extremity venous circulation using routine protocol from the femoral veins through the popliteal veins. Venous compressibility: Normal. Flow and augmentation patterns: Normal. Visualized veins upper third of calf: Normal. Crawford cyst: None. IMPRESSION: No sonographic or Doppler evidence for DVT in left lower extremity.
[2017-07-01 20:01] VITALS: BP 102/58
[2017-07-02 08:16] VITALS: PULSE 70; TEMP 97.3; O2SAT 100
[2017-07-02] MEDS: Lactobacillus Acidophilus 500 MU Cap PO SCH (09:01)
[2017-07-02] MEDS: Cholecalciferol 1,000 INTLU TAB PO SCH (09:03)
[2017-07-02] MEDS: Oxycodone/Acetaminophen 5/325 mg Tab PO PRN (09:27)
--- NOTE | 2017-07-02 12:36 | CP.PCM.DIS ---
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 continue Sodium Bicarb 650mg PO QID (3) Seizure Status: Inactive Comment: continue [facility] Course - Lab Results Lab Results: Most Recent Lab Values WBC 10.7 K/uL (4.8-10.8) 07/01/17 12:20 RBC 2.84 Mil/uL (3.80-5.20) L 07/01/17 12:20 Hgb 8.1 g/dL (12.0-16.0) L 07/01/17 12:20 Hct 22.5 % (34.0-47.0) L 07/01/17 12:20 MCV 79.1 fl (81.0-99.0) L D 07/01/17 12:20 MCH 28.4 pg (27.0-31.0) 07/01/17 12:20 MCHC 35.8 g/dL (33.0-37.0) 07/01/17 12:20 RDW 17.3 % (11.5-14.5) H 07/01/17 12:20 Plt Count 270 K/uL (130-400) D 07/01/17 12:20 MPV 7.3 fl (7.2-11.7) 07/01/17 12:20 Neut % (Auto) 69.9 % (50.0-75.0) 07/01/17 12:20 Lymph % (Auto) 17.3 % (20.0-40.0) L 07/01/17 12:20 [place] % (Auto) 9.2 % (0.0-10.0) 07/01/17 12:20 Eos % (Auto) 3.4 % (0.0-4.0) 07/01/17 12:20 Baso % (Auto) 0.2 % (0.0-2.0) 07/01/17 12:20 Neut # (Auto) 7.5 K/uL (1.8-7.0) H 07/01/17 12:20 Lymph # (Auto) 1.8 K/uL (1.0-4.3) 07/01/17 12:20 [place] # (Auto) 1.0 K/uL (0.0-0.8) H 07/01/17 12:20 Eos # (Auto) 0.4 K/uL (0.0-0.7) 07/01/17 12:20 Baso # (Auto) 0.0 K/uL (0.0-0.2) 07/01/17 12:20 Sodium 141 mmol/l (132-148) 07/01/17 12:20 Potassium 3.8 MMOL/L (3.6-5.0) 07/01/17 12:20 Chloride 103 mmol/L (98-107) 07/01/17 12:20 Carbon Dioxide 22 mmol/L (22-30) 07/01/17 12:20 Anion Gap 20 (10-20) 07/01/17 12:20 BUN 35 mg/dl (7-17) H 07/01/17 12:20 Creatinine 2.6 mg/dl (0.7-1.2) H 07/01/17 12:20 Est GFR ( Amer) 23 07/01/17 12:20 Est GFR (Non-Af Amer) 19 07/01/17 12:20 Random Glucose 130 mg/dL (65-105) H 07/01/17 12:20 Calcium 8.7 mg/dL (8.4-10.2) 07/01/17 12:20 - Hospital Course Hospital Course: 56 yo female with 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 She was later transferred to TCU for completion of her physical therapy. Discharge Exam - Head Exam Head Exam: ATRAUMATIC, NORMAL INSPECTION, NORMOCEPHALIC - Eye Exam Eye Exam: absent: Scleral icterus - ENT Exam ENT Exam: Mucous Membranes Moist - Respiratory Exam Respiratory Exam: absent: Rhonchi, Wheezes, Respiratory Distress - Cardiovascular Exam Cardiovascular Exam: REGULAR RHYTHM, +S1, +S2 - GI/Abdominal Exam GI & Abdominal Exam: Soft. absent: Tenderness - Rectal Exam Rectal Exam: Deferred - Neurological Exam Neurological exam: Alert, Oriented x3 - Psychiatric Exam Psychiatric exam: Normal Affect - Skin Skin Exam: Dry, Intact Discharge Plan - Follow Up Plan Condition: GOOD Disposition: HOME/ ROUTINE Instructions: Revision Total Joint Arthroplasty (DC), Fall Prevention (DC) Additional Instructions: Follow up with primary MD Perez within one week. Appointment with MD Seth Jul 15 at 930 am Referrals: Cynthia Perez MD [Primary Care Provider] -
--- NOTE | 2017-07-02 12:44 | CP.PCM.PN ---
Subjective - Date & Time of Evaluation Date of Evaluation: 07/02/17 Time of Evaluation: 09:00 - Subjective Subjective: no acute complaints at present Objective - Vital Signs/Intake and Output Vital Signs (last 24 hours): Temp Pulse Resp BP Pulse Ox 97.3 F L 70 20 102/58 L 100 07/02/17 10:00 07/02/17 10:00 07/02/17 10:00 07/02/17 10:00 07/02/17 10:00 - Medications Medications: Current Medications Aspirin (Ecotrin) 81 mg PO BID [facility] Last Admin: 07/02/17 09:02 Dose: 81 mg Atorvastatin Calcium (Lipitor) 10 mg PO DAILY [facility] Last Admin: 07/02/17 09:02 Dose: 10 mg Bisacodyl (Dulcolax) 5 mg PO DAILY PRN PRN Reason: Constipation Last Admin: 06/28/17 09:09 Dose: 5 mg Cholecalciferol (Vitamin D) 1,000 intlu PO DAILY [facility] Last Admin: 07/02/17 09:03 Dose: 1,000 intlu Docusate Sodium (Colace) 100 mg PO BID [facility] Last Admin: 07/02/17 09:02 Dose: 100 mg Lactobacillus Acidophilus (Bacid Acidophilus) 1 cap PO BID [facility] Last Admin: 07/02/17 09:01 Dose: 1 cap Lactulose (Enulose) 20 gm PO BID PRN PRN Reason: Constipation Last Admin: 06/28/17 15:49 Dose: 20 gm Levetiracetam (Keppra) 500 mg PO BID [facility] Last Admin: 07/02/17 09:02 Dose: 500 mg Oxycodone/Acetaminophen (Percocet 5/325 Mg Tab) 1 tab PO Q4 PRN PRN Reason: Pain, moderate (4-7) Stop: 07/04/17 08:54 Last Admin: 07/02/17 09:27 Dose: 1 tab Sodium Bicarbonate (Sodium Bicarbonate Tab) 650 mg PO QID [facility] Last Admin: 07/02/17 09:03 Dose: 650 mg - Labs Labs: 07/01/17 12:20 07/01/17 12:20 - Head Exam Head Exam: ATRAUMATIC, NORMAL INSPECTION, NORMOCEPHALIC - Eye Exam Eye Exam: EOMI, Normal appearance, PERRL Pupil Exam: NORMAL ACCOMODATION - ENT Exam ENT Exam: Mucous Membranes Moist, Normal Exam - Neck Exam Neck Exam: Normal Inspection - Respiratory Exam Respiratory Exam: NORMAL BREATHING PATTERN - Cardiovascular Exam Cardiovascular Exam: REGULAR RHYTHM - GI/Abdominal Exam GI & Abdominal Exam: Normal Bowel Sounds - Rectal Exam Rectal Exam: NORMAL INSPECTION - Exam External exam: NORMAL EXTERNAL EXAM - Extremities Exam Extremities Exam: Full ROM, Normal Capillary Refill - Back Exam Back Exam: NORMAL INSPECTION - Neurological Exam Neurological Exam: Alert, Awake Neuro motor strength exam: Left Upper Extremity: 4, Right Upper Extremity: 4, Left Lower Extremity: 3, Right Lower Extremity: 4 - Psychiatric Exam Psychiatric exam: Normal Affect, Normal Mood - Skin Skin Exam: Dry, Intact Assessment and Plan (1) Status post revision of total knee replacement Assessment & Plan: plan for Dc to home status post tPT Ot therapy Status: Acute (2) Seizure Status: Acute (3) UTI (urinary tract infection) Status: Acute (4) Arthritis of left knee Status: Chronic (5) CKD (chronic kidney disease) Status: Chronic
== END 2017-07-02 15:15 | disposition home or self-care (01) | DRG 560 ==
LOC: H.TCU 11:42 → UNDOADMIN 11:42 → H.TCU 14:10
PROVIDERS: ADMIT Hospitalist; ATTEND Hospitalist
PROC: F08Z1FZ Dressing Techniques Treatment using Assistive, Adaptive, Supportive or Protective Equipment (ICD-10-PCS; principal; 2017-06-24)
PROC: F07Z5ZZ Bed Mobility Treatment (ICD-10-PCS; 2017-06-24)
PROC: F07Z8ZZ Transfer Training Treatment (ICD-10-PCS; 2017-06-24)
PROC: F07Z9FZ Gait Training/Functional Ambulation Treatment using Assistive, Adaptive, Supportive or Protective Equipment (ICD-10-PCS; 2017-06-24)
PROC: F07L6FZ Therapeutic Exercise Treatment of Musculoskeletal System - Lower Back / Lower Extremity using Assistive, Adaptive, Supportive or Protective Equipment (ICD-10-PCS; 2017-06-24)
DX: Z47.1 Aftercare following joint replacement surgery (principal); N18.4 Chronic kidney disease, stage 4 (severe); Q61.5 Medullary cystic kidney; Z96.652 Presence of left artificial knee joint; E78.5 Hyperlipidemia, unspecified; G40.909 Epilepsy, unspecified, not intractable, without status epilepticus; K59.00 Constipation, unspecified; E78.00 Pure hypercholesterolemia, unspecified; Z87.440 Personal history of urinary (tract) infections